=== PATIENT | female | born 1980 | race Caucasian/White ===

== ENCOUNTER 2016-10-19 11:32 | Day surgery (SDC) | payer MEDICARE, MEDICAID ==
[~2016-10-19 11:32] MED LIST: GLYCOPYRROLATE INJ 0.4 MG/2 ML VIAL ONE; LIDOCAINE 2% INJ-PF (20 MG/ML) 10 ML AMPUL ONE; METOCLOPRAMIDE HCL INJ/PF 10 MG/2 ML SDV ONE; ONDANSETRON HCL INJ/PF 4 MG/2 ML SDV ONE
[2016-10-19] MEDS ORDERED: OXYCODONE-ACETAMINOPHEN 5-325 MG TABLET PO PRN ×2 (12:01)
[2016-10-19] MEDS ORDERED: PROMETHAZINE HCL INJ 25 MG/1 ML VIAL IV PRN ×2 (12:01)
[2016-10-19] MEDS ORDERED: DIPHENHYDRAMINE HCL 50 MG/ML VIAL IV PRN (12:01)
[2016-10-19] MEDS ORDERED: FENTANYL CITRATE INJ/PF 100 MCG/2 ML AMPUL IV PRN ×3 (12:01)
[2016-10-19] MEDS ORDERED: MORPHINE SULFATE 10 MG/ML INJ IV PRN (12:01)
[2016-10-19] MEDS ORDERED: MEPERIDINE HCL/PF INJ 25 MG/1 ML DISP.SYRIN IV PRN (12:01)
[2016-10-19 12:31] LABS: ABSOLUTE BASOPHILS # (AUTO) 0.1 10^3/uL (0.0-0.2); ABSOLUTE EOSINOPHILS # (AUTO) 0.2 10^3/uL (0.0-0.6); ABSOLUTE LYMPHOCYTES (AUTO) 1.5 10^3/uL (0.5-4.7); ABSOLUTE MONOCYTES (AUTO) 0.4 10^3/uL (0.1-1.4); ABSOLUTE NEUT (AUTO) 4.4 10^3/uL (1.7-8.2); BASOPHILS % (AUTO) 1.1 % (0-2); HEMATOCRIT 44.8 % (36.0-47.0); HEMOGLOBIN 15.1 g/dL (12.0-15.5); HGB HCT DIFFERENCE 0.5; LYMPHOCYTES % (AUTO) 22.5 % (13-45); MEAN CORPUSCULAR HEMOGLOBIN 31.9 pg (27.0-33.4); MEAN CORPUSCULAR HGB CONC 33.6 g/dL (32.0-36.0); MEAN CORPUSCULAR VOLUME 95 fl (80-97); MONOCYTES % (AUTO) 6.1 % (3-13); RED BLOOD COUNT 4.73 10^6/uL (3.72-5.28); RED CELL DISTRIBUTION WIDTH 15.8 % (11.5-14.0); SEGMENTED NEUTROPHILS % (AUTO) 67.3 % (42-78); WHITE BLOOD COUNT 6.5 10^3/uL (4.0-10.5)
[2016-10-19 12:45] LABS: PROTHROMBIN TIME 46.9 SEC (11.4-15.4)
[2016-10-19 12:46] LABS: PARTIAL THROMBOPLASTIN TIME 65.9 SEC (23.5-35.8)
[2016-10-19] MEDS ORDERED: LIDOCAINE 0.5% INJ-PF (5 MG/ML) 50 ML SDV ONE (12:50)
[2016-10-19] MEDS ORDERED: IPRATROPIUM/ALBUTEROL 0.5-2.5 MG/3 ML AMPUL NEB ONE (12:50)
[2016-10-19] MEDS ORDERED: ALBUTEROL SULFATE 0.083% NEB 2.5 MG/3 ML AMPUL NEB ONE (12:52)
[2016-10-19 12:56] LABS: ANION GAP 18 (5-19); BLOOD UREA NITROGEN 45 mg/dL (7-20); CALCIUM 9.9 mg/dL (8.4-10.2); CARBON DIOXIDE 23 mmol/L (22-30); CHLORIDE 96 mmol/L (98-107); CREATININE RESULT 12.88 mg/dL (0.52-1.25); GLUCOSE 98 mg/dL (75-110); POTASSIUM 5.2 mmol/L (3.6-5.0); SODIUM 136.5 mmol/L (137-145)
[2016-10-19] MEDS ORDERED: FENTANYL CITRATE INJ/PF 250 MCG/5 ML AMPULE ONE (13:23)
[2016-10-19] MEDS ORDERED: KETAMINE HCL INJ 500 MG/10 ML VIAL ONE (13:23)
[2016-10-19] MEDS ORDERED: MIDAZOLAM 2 MG/2 ML INJ ONE (13:24)
[2016-10-19] MEDS ORDERED: DEXMEDETOMIDINE INJ 80 MCG/20 ML VIAL IV ONE (13:24)
[2016-10-19] MEDS ORDERED: PROPOFOL INJ 200 MG/20 ML VIAL IV ONE (13:24)
[2016-10-19] MEDS ORDERED: HYDROMORPHONE HCL INJ/PF 2 MG/ML AMPULE ONE (15:09)
--- NOTE | 2016-10-19 15:13 | PDOC DISCHARGE SUMMARY ---
Discharge Summary (SDC) - Discharge Final Diagnosis: #1 malfunctioning arteriovenous fistula, right brachiocephalic. #2 end-stage renal disease on hemodialysis. #3 tobacco use disorder. Date of Surgery: 10/19/16 Discharge Date: 10/19/16 Condition: Good Treatment or Instructions: #1 activities within moderation encouraged. #2 follow up in my office by appointment in about 1 month. Call for appointment. #3 the wounds covered clean and dry until hemodialysis. #4 hold off on school/work until evaluation in office. #5 may shower in 48 hours, keep operated area as dry as possible. #6 discharge from ambulatory when ASU criteria met. #7 medications per medication reconciliation sheet. #8 Also may have one Percocet up to every 4 hours when necessary for pain greater than 4 out of 10 while in the ASU Discharge Diet: Other (Comments) Respiratory Treatments at Home: Deep Breathing/Coughing Report the Following to Your Physician Immediately: Shortness of Breath, Unusual Bleeding
--- NOTE | 2016-10-19 16:24 | Operative Report ---
Operative Report DATE OF SURGERY: 10/19/16 PREOPERATIVE DIAGNOSIS: #1 malfunctioning arteriovenous fistula, right brachiocephalic. #2 end-stage renal disease on hemodialysis. #3 tobacco use disorder. POSTOPERATIVE DIAGNOSIS: #1 malfunctioning arteriovenous fistula, right brachiocephalic. #2 end-stage renal disease on hemodialysis. #3 tobacco use disorder. OPERATION: #1 needle access into fistula. #2 angioplasty in arterial segment. #3 angioplasty in arteriovenous fistula. #4 angiogram and interpretation. SURGEON: DANNIELLE ECHEVARRIA TRAILER TECHNICIAN: none ANESTHESIA: LMAC TISSUE REMOVED OR ALTERED: Not applicable. COMPLICATIONS: None ESTIMATED BLOOD LOSS: 2 mL. INTRAOPERATIVE FINDINGS: Of a well-founded right arm brachiocephalic fistula. Somewhat soft, suggesting inflow disease. On palpation stenosis is predicted at about a 3 cm from the arteriovenous last anastomosis. Sure enough there was a 80-90% stenosis at this area, 2-3 mm long. Corrected with perhaps 5-10% stenosis residual. In addition the initial 3 mm of the fistula and the arteriovenous anastomosis were stenotic about 80% of the adjacent lumen. This responded nicely to angioplasty with a residual 5-10% stenosis. The fistula itself was firm and suggesting better inflow after correction. Further aggressive dilatations may be needed in future. The patient's INR would need to be in appropriate level in order to reduce risk. Today the INR was close to 5. PROCEDURE: PROCEDURE: After verifying the procedure and having obtained informed consent, the patient's right arm was prepared with Chlorhexidine and draped out with sterile linen. Local anesthesia infiltrated. Percutaneous access into the fistula ,[retrograde], obtained about [15 cm] from the arteriovenous anastomosis using a micro puncture needle followed by micro puncture wire and then a micro puncture catheter. Angiogram demonstrated the aforementioned findings. Angioplasty was elected. A 0.035 [place] wire was inserted, and over this, a 6 Telugu short introducer was placed, this was followed by a [5] Jonathan angioplasty balloon . Angioplasty was Done first that the arterial venous anastomosis inflating up to 12 manjinder for 1 minute. The balloon was now withdrawn and inflated at the arteriovenous stenotic segment up to 14 manjinder for a minute. Completion angiogram demonstrated considerable improvement. A 6 mm angioplasty balloon was now swapped over and used to inflate the inflate the in fistula stenosis. Inflating up to 14 atmospheres for a minute at a time.]. Completion angiogram demonstrated [an acceptable result]. The instrumentation was now withdrawn over pressure for 10 minutes. Dressings applied, procedure concluded. Exposure time: 1.7 minutes. Radiation: 8 tucker per centimeters squared Contrast: 25 mL of Isovue-M 300, low osmolality. DICTATING PHYSICIAN: DANNIELLE DAVIS M.D. cc: DANNIELLE DAVIS M.D. ([id number]) >>
[2016-10-19 17:39] VITALS: BP 105/58
--- NOTE | 2016-11-03 10:23 | HISTORY AND PHYSICAL E ---
History and Physical NAME: GEORGIE LIN : 1980 AGE: 36Y ADMITTED: 10/19/2016 ROOM: ADMITTING DIAGNOSES: 1. Malfunctioning arteriovenous fistula. 2. End-stage renal disease on hemodialysis. 3. Tobacco use disorder. HISTORY OF THE PRESENTING COMPLAINT: The patient was referred across from hemodialysis because of poor function in her fistula, decreased flow. PAST MEDICAL HISTORY: Polycystic kidney disease, hypertension, tobacco use disorder, and end-stage renal disease. ALLERGIES: As noted in chart. PHYSICAL EXAMINATION: GENERAL: A very pleasant 36-year-old female. Alert and oriented. Judgment, memory and insight seem normal. VITAL SIGNS: Blood pressure 105/58. Temperature of 97.7. Pulse rate of 87. Respiratory rate of 16. EYES: Mucous membranes pink and moist. Sclerae anicteric. OROPHARYNX: Normal. Dentition intact. RESPIRATORY: Chest clear bilaterally. No wheezing. HEART: Sounds normal. No murmurs. UPPER EXTREMITIES: Pertinent for scars of previous fistula. A well-founded right brachiocephalic fistula noted. Relatively soft, suggesting inflow disease. PLAN: To admit the patient for fistula angiogram and possible angioplasty. The risks, benefits, expected outcome and alternatives are familiar to the patient, and she wishes to proceed. DICTATING PHYSICIAN: DANNIELLE DAVIS M.D. [id number] JOSEY#: [id number] ID: [id number] JOB#: [id number] ACCT: [id number] cc:DANNIELLE DAVIS M.D. >
== END 2016-10-19 17:55 | disposition home or self-care (01) ==
LOC: MERGE 11:32 → OROUT 11:32
PROVIDERS: ATTEND Surgery
PROC: 05SC0ZZ Reposition Left Basilic Vein, Open Approach (ICD-10-PCS; principal; 2016-10-19)
PROC: 05753DZ Dilation of Right Subclavian Vein with Intraluminal Device, Percutaneous Approach (ICD-10-PCS; 2016-10-19)
DX: T82.858A Stenosis of other vascular prosthetic devices, implants and grafts, initial encounter (principal); Y83.2 Surgical operation with anastomosis, bypass or graft as the cause of abnormal reaction of the patient, or of later complication, without mention of misadventure at the time of the procedure; Z99.2 Dependence on renal dialysis; F17.210 Nicotine dependence, cigarettes, uncomplicated; N18.6 End stage renal disease; I12.0 Hypertensive chronic kidney disease with stage 5 chronic kidney disease or end stage renal disease; M19.90 Unspecified osteoarthritis, unspecified site; E66.9 Obesity, unspecified; Q61.3 Polycystic kidney, unspecified
CPT/HCPCS: 36819; 36415; 84703; 85025; 85610; 85730; 80048; 36902; C1752; C1725 ×2; Q9967; C1769; J2250; J3010; J3490 ×4; J2765; J1170; J2405; J2704; A9270; J1644; 1844; J7620

== ENCOUNTER 2016-12-14 06:36 | Day surgery (SDC) | payer MEDICARE, MEDICAID ==
[2016-12-14] MEDS ORDERED: EPHEDRINE SULFATE INJ 50 MG/1 ML AMPULE ONE (06:45)
[2016-12-14] MEDS ORDERED: PROPOFOL INJ 200 MG/20 ML VIAL IV ONE (06:45)
[2016-12-14] MEDS ORDERED: MIDAZOLAM 2 MG/2 ML INJ ONE (06:45)
[2016-12-14] MEDS ORDERED: FENTANYL CITRATE INJ/PF 100 MCG/2 ML AMPUL ONE (06:45)
[2016-12-14] MEDS ORDERED: DEXMEDETOMIDINE INJ 80 MCG/20 ML VIAL IV ONE (06:46)
[2016-12-14] MEDS ORDERED: HEPARIN SOD (PORCINE) 1,000 UNIT/ML 10 ML VIAL ONE (06:47)
[2016-12-14 07:06] LABS: ABSOLUTE BASOPHILS # (AUTO) 0.1 10^3/uL (0.0-0.2); ABSOLUTE EOSINOPHILS # (AUTO) 0.3 10^3/uL (0.0-0.6); ABSOLUTE LYMPHOCYTES (AUTO) 1.9 10^3/uL (0.5-4.7); ABSOLUTE MONOCYTES (AUTO) 0.4 10^3/uL (0.1-1.4); ABSOLUTE NEUT (AUTO) 3.1 10^3/uL (1.7-8.2); BASOPHILS % (AUTO) 1.2 % (0-2); EOSINOPHILS % (AUTO) 5.4 % (0-6); HEMATOCRIT 41.5 % (36.0-47.0); HEMOGLOBIN 13.9 g/dL (12.0-15.5); HGB HCT DIFFERENCE 0.2; LYMPHOCYTES % (AUTO) 32.5 % (13-45); MEAN CORPUSCULAR HEMOGLOBIN 31.3 pg (27.0-33.4); MEAN CORPUSCULAR HGB CONC 33.5 g/dL (32.0-36.0); MEAN CORPUSCULAR VOLUME 94 fl (80-97); MONOCYTES % (AUTO) 7.5 % (3-13); RED BLOOD COUNT 4.44 10^6/uL (3.72-5.28); RED CELL DISTRIBUTION WIDTH 14.3 % (11.5-14.0); SEGMENTED NEUTROPHILS % (AUTO) 53.4 % (42-78); WHITE BLOOD COUNT 5.8 10^3/uL (4.0-10.5)
[2016-12-14] MEDS ORDERED: KETAMINE HCL INJ 500 MG/10 ML VIAL ONE (07:50)
[2016-12-14 08:02] LABS: PROTHROMBIN TIME 19.1 SEC (11.4-15.4)
[2016-12-14 08:14] LABS: ANION GAP 15 (5-19); BLOOD UREA NITROGEN 39 mg/dL (7-20); CALCIUM 9.6 mg/dL (8.4-10.2); CARBON DIOXIDE 27 mmol/L (22-30); CHLORIDE 96 mmol/L (98-107); CREATININE RESULT 9.75 mg/dL (0.52-1.25); GLUCOSE 104 mg/dL (75-110); POTASSIUM 5.1 mmol/L (3.6-5.0); SODIUM 138.4 mmol/L (137-145)
[2016-12-14] MEDS ORDERED: LIDOCAINE 0.5% INJ-PF (5 MG/ML) 50 ML SDV ONE (08:33)
--- NOTE | 2016-12-14 09:53 | PDOC H&P ---
General Chief Complaint: The patient was referred across for angiogram. She is noted to have increased venous pressures on dialysis. Suggesting outflow disease. - Current Medications/Allergies Home Medications: Clonazepam [Klonopin] 0.5 mg PO TID 03/12/15 Fentanyl 50 mcg TD Q72H 03/12/15 Omeprazole 20 mg PO QHS 03/12/15 Ondansetron HCl [Zofran 4 mg Tablet] 4 mg PO Q6H PRN 03/12/15 Trazodone HCl [Desyrel 50 mg Tablet] 50 mg PO QHS 10/19/15 Warfarin Sodium 5 mg PO QHS 10/19/15 Albuterol Sulfate 2.5 mg IH QIDP PRN 03/17/16 Albuterol Sulfate [Proair HFA] 2 puff IH Q6HP PRN 03/17/16 Gabapentin Enacarbil [Horizant] 300 mg PO QHS 03/17/16 Tizanidine HCl 4 mg PO QHS 03/17/16 Calcium Acetate [Phoslo] 4 cap PO MEALS 03/19/16 Enoxaparin Sodium [Lovenox] 40 mg INJ DAILY 05/18/16 Hydromorphone HCl [Dilaudid] 4 mg PO DAILY PRN 05/18/16 Albuterol Sulfate [Albuterol Sulfate 2.5mg/3 mL] 2.5 mg IH PRN PRN 07/13/16 Albuterol Sulfate [Proair HFA] 1 puff IH PRN PRN 07/13/16 Calcium Acetate [Phoslo 667 mg Capsule] 1 tab PO DAILY 07/13/16 Clonazepam [Klonopin] 0.5 mg 07/13/16 Fentanyl Citrate/Pf [Fentanyl 50 Mcg/ml Syringe] 50 mcg TD 07/13/16 Gabapentin Enacarbil [Horizant] 300 mg PO DAILY 07/13/16 Ipratropium [place] [Atrovent 0.02% Neb 0.5 mg/2.5 ml Ampul] 1 puff IH PRN PRN 07/13/16 Omeprazole 20 mg PO DAILY 07/13/16 Ondansetron HCl [Zofran] 4 mg PO DAILY 07/13/16 Oxymorphone HCl 10 mg PO DAILY 07/13/16 Trazodone HCl [Desyrel 50 mg Tablet] 50 mg PO DAILY 07/13/16 Warfarin Sodium 5 mg PO DAILY 07/13/16 Allergies/Adverse Reactions: oxycodone HCl [From Percocet] Allergy (Severe, Verified 06/17/16 08:48) Hives acetaminophen [From Percocet] Allergy (Verified 07/13/16 11:21) adhesive Allergy (Verified 07/13/16 11:22) adhesive tape [Adhesive Tape] Allergy (Verified 06/17/16 08:48) Generalized rash oxycodone [From Percocet] Allergy (Verified 07/13/16 11:21) Past Medical History Cardiac Medical History: Reports: Congestive Heart Failure, Hypertension Denies: Coronary Artery Disease, Myocardial Infarction, Heart Murmur Pulmonary Medical History: Reports: Asthma Denies: Bronchitis, Chronic Obstructive Pulmonary Disease (COPD), Pneumonia, Respiratory Failure, Sleep Apnea, Tuberculosis Neurological Medical History: Reports: Migraine Denies: Seizures Renal/ Medical History: Reports: End Stage Renal Disease GI Medical History: Reports: Gastroesophageal Reflux Disease Musculoskeltal Medical History: Denies: Arthritis Psychiatric Medical History: Denies: Depression Hematology: Denies: Anemia, Hemophilia, Sickle Cell Disease Past Surgical History Past Surgical History: Reports: Appendectomy, Section - x1, Tubal Ligation Family History Family History: Other - Multiple family members with polycystic kidney disease Parental Family History Reviewed: Yes Children Family History Reviewed: Yes Sibling(s) Family History Reviewed.: Yes Social History Smoking Status: Current Some Day Smoker Frequency of Alcohol Use: None Hx Recreational Drug Use: No Hx Prescription Drug Abuse: No Physical Exam Vital Signs: Temp Pulse Resp BP Pulse Ox 98.4 F 87 16 138/84 H 94 12/14/16 06:30 12/14/16 06:30 12/14/16 06:30 12/14/16 06:30 12/14/16 06:30 Intake & Output 12/13/16 12/14/16 12/15/16 06:59 06:59 06:59 Weight 116 kg Additional comments: A well-developed well-nourished female. Mildly increased body habitus. Mild chronic emotional distress. Eyes membranes is pink and moist, sclerae anicteric. Respiratory no shortness of breath. Breath sounds are normal and equal bilaterally. Cardiac: Heart sounds 1 and 2 heard, no murmurs. Upper extremities show normal range of movement and pulsatile to the radials. Normal capillary refill. A cephalic to brachial fistula is appreciated. In the right upper extremity. Somewhat firm, suggesting cephalad stenosis. Psychiatric the patient is alert, oriented, judgment, memory, insight normal Impression/Plan Impression: #1 malfunctioning AV fistula. #2 end-stage renal disease on hemodialysis. #3 chronic anticoagulation. #4 hypertension. #5 anxiety. #6 syndrome. #7 multiple comorbidities. Plan: The patient is admitted for fistula angioplasty probably through an antegrade approach.
[2016-12-14] MEDS ORDERED: PROMETHAZINE HCL INJ 25 MG/1 ML VIAL IV PRN (09:55)
[2016-12-14] MEDS ORDERED: DIPHENHYDRAMINE HCL 50 MG/ML VIAL IV PRN (09:55)
[2016-12-14] MEDS ORDERED: MORPHINE SULFATE 10 MG/ML INJ IV PRN (09:55)
[2016-12-14] MEDS ORDERED: ONDANSETRON HCL INJ/PF 4 MG/2 ML SDV IV PRN (09:55)
[2016-12-14] MEDS ORDERED: FENTANYL CITRATE INJ/PF 100 MCG/2 ML AMPUL IV PRN ×3 (09:55)
[2016-12-14] MEDS ORDERED: MEPERIDINE HCL/PF INJ 25 MG/1 ML DISP.SYRIN IV PRN (09:55)
--- NOTE | 2016-12-14 09:55 | PDOC DISCHARGE SUMMARY ---
Discharge Summary (SDC) - Discharge Final Diagnosis: #1 malfunctioning AV fistula. #2 end-stage renal disease on hemodialysis. #3 chronic anticoagulation. #4 hypertension. #5 anxiety. #6 syndrome. #7 multiple comorbidities. Date of Surgery: 12/14/16 Discharge Date: 12/14/16 Condition: Fair Treatment or Instructions: #1 activities within moderation encouraged. #2 follow up in my office by appointment in about 1 week. Call for appointment. #3 the wounds covered clean and dry until hemodialysis. #4 hold off on school/work until evaluation in office. #5 may shower in 48 hours, keep operated area as dry as possible. #6 discharge from ambulatory when ASU criteria met. #7 medications per medication reconciliation sheet. Discharge Diet: Other (Comments) - Renal Respiratory Treatments at Home: Deep Breathing/Coughing Discharge Activity: Activity As Tolerated Report the Following to Your Physician Immediately: Shortness of Breath, Unusual Bleeding
[2016-12-14 11:18] VITALS: BP 130/85
[2016-12-14] MEDS ORDERED: ONDANSETRON HCL INJ/PF 4 MG/2 ML SDV ONE (12:09)
[2016-12-14] MEDS ORDERED: LIDOCAINE 2% INJ-PF (20 MG/ML) 10 ML AMPUL ONE (12:09)
--- NOTE | 2016-12-14 17:56 | Operative Report ---
Operative Report DATE OF SURGERY: 12/14/16 PREOPERATIVE DIAGNOSIS: #1 malfunctioning AV fistula. #2 end-stage renal disease on hemodialysis. #3 chronic anticoagulation. #4 hypertension. #5 anxiety. #6 syndrome. #7 multiple comorbidities. POSTOPERATIVE DIAGNOSIS: #1 malfunctioning AV fistula. #2 end-stage renal disease on hemodialysis. #3 chronic anticoagulation. #4 hypertension. #5 anxiety. #6 syndrome. #7 multiple comorbidities. OPERATION: #1 needle access into fistula. #2 fistula angioplasty. #3 angiogram and interpretation. SURGEON: DANNIELLE DAVIS 1ST CREDIT COUNSELOR: none ANESTHESIA: Moderate Sedation TISSUE REMOVED OR ALTERED: Not applicable. COMPLICATIONS: None ESTIMATED BLOOD LOSS: 2 mL. INTRAOPERATIVE FINDINGS: Of stenoses each about 1.5 cm long and 80% of the adjacent lumen. At about 18 cm and at 25 cm. easily dilated and appeared almost to be stenosis rather than stenosis. Nevertheless they responded to dilatation very nicely with softening of the fistula. PROCEDURE: After verifying the procedure and having obtained informed consent, the patient's right arm was prepared with Chlorhexidine and draped out with sterile linen. Local anesthesia infiltrated. Percutaneous access into the fistula ,[ antegrade], obtained about [2 cm] from the arteriovenous anastomosis using a micro puncture needle followed by micro puncture wire and then a micro puncture catheter. Angiogram demonstrated the aforementioned findings. Angioplasty was elected. A 0.035 [place] wire was inserted, and over this, a 6 Dive[place] short introducer was placed, this was followed by a [8] angioplasty balloon . Angioplasty was Done under hand injection at the affected areas.. Inflating up to estimated 60 atmospheres for a minute at a time.]. Completion angiogram demonstrated [satisfactory result]. The instrumentation was now withdrawn over a hand-held pressure for 15 minutes.. Dressings applied , procedure concluded. Exposure time: 0.3 minutes Radiation: 28 tucker per centimeters squared Contrast: 25 mL of Isovue-M 300, low osmolality. DICTATING PHYSICIAN: DANNIELLE DAVIS M.D. cc: DANNIELLE DAVIS M.D. ([id number]) >>
== END 2016-12-14 11:15 | disposition home or self-care (01) ==
LOC: OROUT 06:36
PROVIDERS: ATTEND Surgery
PROC: 057D3DZ Dilation of Right Cephalic Vein with Intraluminal Device, Percutaneous Approach (ICD-10-PCS; principal; 2016-12-14)
DX: T82.858A Stenosis of other vascular prosthetic devices, implants and grafts, initial encounter (principal); Y83.2 Surgical operation with anastomosis, bypass or graft as the cause of abnormal reaction of the patient, or of later complication, without mention of misadventure at the time of the procedure; I13.2 Hypertensive heart and chronic kidney disease with heart failure and with stage 5 chronic kidney disease, or end stage renal disease; I50.9 Heart failure, unspecified; N18.6 End stage renal disease; Z99.2 Dependence on renal dialysis; R06.81 Apnea, not elsewhere classified; M19.90 Unspecified osteoarthritis, unspecified site; G43.909 Migraine, unspecified, not intractable, without status migrainosus; J45.909 Unspecified asthma, uncomplicated; F41.9 Anxiety disorder, unspecified; K21.9 Gastro-esophageal reflux disease without esophagitis; R01.1 Cardiac murmur, unspecified; F32.9 Major depressive disorder, single episode, unspecified; Z79.899 Other long term (current) drug therapy; Z79.51 Long term (current) use of inhaled steroids; Z79.01 Long term (current) use of anticoagulants; Z88.5 Allergy status to narcotic agent; Z88.6 Allergy status to analgesic agent
CPT/HCPCS: 36415; 85025; 85610; 85730; 80048; 36902; C1725; C1752; Q9967; C1769; J2250; J3010; J1644 ×2; J3490 ×3; J2405; J2704; 1844

== ENCOUNTER → 2017-01-06 | Outpatient (CLI) | payer MEDICARE, MEDICAID | LOC: RAD 10:07 | PROVIDERS: ATTEND Internal Medicine Nephrology | DX: R31.9 Hematuria, unspecified (principal) | CPT/HCPCS: 76770 ==

== ENCOUNTER 2017-02-15 08:11 | Day surgery (SDC) | payer MEDICARE, MEDICAID ==
[~2017-02-15 08:11] MED LIST changes: +BUPIVACAINE HCL 0.25 % INJ/PF (2.5 MG/1 ML) 30 ML VIAL ONE; -GLYCOPYRROLATE INJ 0.4 MG/2 ML VIAL ONE; +LIDOCAINE 0.5% INJ-PF (5 MG/ML) 50 ML SDV ONE; -LIDOCAINE 2% INJ-PF (20 MG/ML) 10 ML AMPUL ONE; -METOCLOPRAMIDE HCL INJ/PF 10 MG/2 ML SDV ONE; -ONDANSETRON HCL INJ/PF 4 MG/2 ML SDV ONE
[2017-02-15 08:47] LABS: HEMOGLOBIN 16.1 g/dL (12.0-15.5); HGB HCT DIFFERENCE -1.7; MEAN CORPUSCULAR HEMOGLOBIN 30.9 pg (27.0-33.4); MEAN CORPUSCULAR HGB CONC 32.1 g/dL (32.0-36.0); MEAN CORPUSCULAR VOLUME 96 fl (80-97); RED CELL DISTRIBUTION WIDTH 14.5 % (11.5-14.0); WHITE BLOOD COUNT 5.8 10^3/uL (4.0-10.5)
[2017-02-15 09:10] LABS: ANION GAP 18 (5-19); BLOOD UREA NITROGEN 27 mg/dL (7-20); CALCIUM 9.7 mg/dL (8.4-10.2); CARBON DIOXIDE 25 mmol/L (22-30); CHLORIDE 96 mmol/L (98-107); CREATININE RESULT 10.13 mg/dL (0.52-1.25); GLUCOSE 95 mg/dL (75-110); POTASSIUM 4.9 mmol/L (3.6-5.0); SODIUM 138.9 mmol/L (137-145)
[2017-02-15] MEDS ORDERED: FENTANYL CITRATE INJ/PF 100 MCG/2 ML AMPUL ONE ×2 (09:34→11:23)
[2017-02-15] MEDS ORDERED: MIDAZOLAM 2 MG/2 ML INJ ONE ×2 (09:34→11:23)
[2017-02-15] MEDS ORDERED: LIDOCAINE 2% INJ-PF (20 MG/ML) 10 ML AMPUL ONE (09:34)
[2017-02-15] MEDS ORDERED: PROPOFOL INJ 200 MG/20 ML VIAL IV ONE (09:35)
[2017-02-15] MEDS ORDERED: ONDANSETRON HCL INJ/PF 4 MG/2 ML SDV IV PRN (10:32)
[2017-02-15] MEDS ORDERED: FENTANYL CITRATE INJ/PF 100 MCG/2 ML AMPUL IV PRN ×3 (10:32)
[2017-02-15] MEDS ORDERED: DIPHENHYDRAMINE HCL 50 MG/ML VIAL IV PRN (10:32)
[2017-02-15] MEDS ORDERED: MEPERIDINE HCL/PF INJ 25 MG/1 ML DISP.SYRIN IV PRN (10:32)
[2017-02-15] MEDS ORDERED: PROMETHAZINE HCL INJ 25 MG/1 ML VIAL IV PRN ×2 (10:32)
[2017-02-15] MEDS ORDERED: HEPARIN SOD (PORCINE) 1,000 UNIT/ML 10 ML VIAL ONE (10:40)
--- NOTE | 2017-02-15 11:17 | PDOC H&P ---
General Chief Complaint: This patient referred across for improvement in arteriovenous fistula. It has not been noted to sucking, suggesting inflow deficiency. - Current Medications/Allergies Home Medications: Clonazepam [Klonopin] 0.5 mg PO TID 03/12/15 Fentanyl 50 mcg TD Q72H 03/12/15 Omeprazole 20 mg PO QHS 03/12/15 Trazodone HCl [Desyrel 50 mg Tablet] 50 mg PO QHS 10/19/15 Warfarin Sodium 5 mg PO QHS 10/19/15 Albuterol Sulfate [Proair HFA] 2 puff IH Q6HP PRN 03/17/16 Gabapentin Enacarbil [Horizant] 300 mg PO QHS 03/17/16 Tizanidine HCl 4 mg PO QHS 03/17/16 Calcium Acetate [Phoslo] 4 cap PO MEALS 03/19/16 Hydromorphone HCl [Dilaudid] 4 mg PO DAILY PRN 05/18/16 Albuterol Sulfate [Albuterol Sulfate 2.5mg/3 mL] 2.5 mg IH PRN PRN 07/13/16 Ondansetron HCl [Zofran] 4 mg PO DAILY 07/13/16 Allergies/Adverse Reactions: oxycodone HCl [From Percocet] Allergy (Severe, Verified 06/17/16 08:48) Hives acetaminophen [From Percocet] Allergy (Verified 07/13/16 11:21) adhesive Allergy (Verified 07/13/16 11:22) adhesive tape [Adhesive Tape] Allergy (Verified 06/17/16 08:48) Generalized rash oxycodone [From Percocet] Allergy (Verified 07/13/16 11:21) Past Medical History Cardiac Medical History: Reports: Congestive Heart Failure, Hypertension Denies: Coronary Artery Disease, Myocardial Infarction, Heart Murmur Pulmonary Medical History: Reports: Asthma Denies: Bronchitis, Chronic Obstructive Pulmonary Disease (COPD), Pneumonia, Respiratory Failure, Sleep Apnea, Tuberculosis Neurological Medical History: Reports: Migraine Denies: Seizures Renal/ Medical History: Reports: End Stage Renal Disease GI Medical History: Reports: Gastroesophageal Reflux Disease Musculoskeltal Medical History: Denies: Arthritis Psychiatric Medical History: Denies: Depression Hematology: Denies: Anemia, Hemophilia, Sickle Cell Disease Past Surgical History Past Surgical History: Reports: Appendectomy, Section - x1, Tubal Ligation Family History Family History: Other - Multiple family members with polycystic kidney disease Parental Family History Reviewed: No Children Family History Reviewed: No Sibling(s) Family History Reviewed.: No Social History Smoking Status: Current Every Day Smoker Frequency of Alcohol Use: None Hx Recreational Drug Use: No Hx Prescription Drug Abuse: No Physical Exam Vital Signs: Temp Pulse Resp BP Pulse Ox 97.9 F 80 14 123/70 95 02/15/17 08:00 02/15/17 08:00 02/15/17 08:00 02/15/17 08:00 02/15/17 08:00 Intake & Output 02/14/17 02/15/17 02/16/17 06:59 06:59 06:59 Intake Total 20 Output Total 0 Balance 20 Weight 119.75 kg Additional comments: Constitutional: Well-developed well-nourished lady, moderately increased body mass index. No apparent acute distress. Eyes: Mucous membranes pink and moist, pupils equal and reactive to light. Conjunctiva normal. Cornea normal. ENT: Hearing grossly normal. External pinna normal to inspection. Teeth intact. Tongue normal to inspection. Back: Heart sounds 1 and 2 normal, no murmurs. Respiratory breath sounds are present bilaterally, normal. Normal respiratory effort. Skin: Normal to inspection. No ulcers, normal turgor. Psychiatric: Judgment, memory, insight seem normal. Mood is pleasant and appropriate. Chronic anxiety. Extremities: Upper extremities show normal range of movement. Pulses present noted to the radial arteries. Capillary refill normal. No cyanosis noted. No muscle wasting noted. Right arm brachial cephalic fistula present, somewhat soft, satisfactory thrill. Impression/Plan Impression: #1 malfunctioning arteriovenous fistula, right brachiocephalic. 2. End-stage renal disease on hemodialysis. 3. Chronic anxiety. 4. Chronic pain syndrome. 5. Hypertension. Plan: Angiogram and probably angioplasty seems well indicated in this patient. The objective is prolonged satisfactory for from of arteriovenous fistula in this lady in whom it is very difficult to procure and sustain. The risks benefits, expected outcome and alternatives are familiar to the patient. She wishes to proceed.
--- NOTE | 2017-02-15 11:20 | PDOC DISCHARGE SUMMARY ---
Discharge Summary (SDC) - Discharge Final Diagnosis: #1 malfunctioning arteriovenous fistula, right brachiocephalic. Angioplasty. 2. End-stage renal disease on hemodialysis. 3. Chronic anxiety. 4. Chronic pain syndrome. 5. Hypertension. Date of Surgery: 02/15/17 Discharge Date: 02/15/17 Condition: Fair Treatment or Instructions: Discharge home [after recovery per ASU criteria]. Diet , [renal],as tolerated, when fully awake advance as tolerated. Activities within moderation encouraged. Follow up in my office by appointment in about [1 month]. Call for appointment. Leave wounds [covered], [keep clean and dry, until hemodialysis. Hold of on school/work [until evaluation in office]. May shower [in 48 hrs], [try to keep operated area as dry as possible]. Discharge Diet: Other (Comments) - Renal Respiratory Treatments at Home: Deep Breathing/Coughing Discharge Activity: Activity As Tolerated Report the Following to Your Physician Immediately: Shortness of Breath, Unusual Bleeding
--- NOTE | 2017-02-15 11:32 | Operative Report ---
Operative Report DATE OF SURGERY: 02/15/17 PREOPERATIVE DIAGNOSIS: #1 malfunctioning arteriovenous fistula, right brachiocephalic. 2. End-stage renal disease on hemodialysis. 3. Chronic anxiety. 4. Chronic pain syndrome. 5. Hypertension. POSTOPERATIVE DIAGNOSIS: #1 malfunctioning arteriovenous fistula, right brachiocephalic. Postangioplasty. 2. End-stage renal disease on hemodialysis. 3. Chronic anxiety. 4. Chronic pain syndrome. 5. Hypertension. OPERATION: 1. Ultrasound evaluation and real-time ultrasound-guided access into left arm AV fistula. 2. Plasty and fistula. 3. Angiogram interpretation. SURGEON: DANNIELLE ECHEVARRIA INK MAKER: None ANESTHESIA: LMAC TISSUE REMOVED OR ALTERED: Not applicable. COMPLICATIONS: None ESTIMATED BLOOD LOSS: 2 mL. INTRAOPERATIVE FINDINGS: Of a relatively soft fistula initially suggesting inflow restriction. The first 3 cm of the fistula are somewhat narrow in comparison to the artery and to the cephalad fistula. The fistula is somewhat serpentine at the anastomosis so that an angle being was used to get a good picture of the anastomotic area. Angioplasty with a 5 mm and then a 7 mm [place] balloon demonstrated relatively pliant vessels with little in the way of waist however good dilatation of the involved segment with very little rebound. Palpation of the fistula suggested improved inflow at the end of the procedure. PROCEDURE: PROCEDURE: After verifying the procedure and having obtained informed consent, the patient's right arm and forearm were prepared with Chlorhexidine and draped out with sterile linen. Local anesthesia infiltrated. Percutaneous access into the fistula ,[retrograde], obtained about [20 cm] from the arteriovenous anastomosis using a micro puncture needle followed by micro puncture wire and then a micro puncture catheter. This was done on ultrasound guidance using real-time access into the vein. Ultrasound was also used to size the vein. Angiogram demonstrated the aforementioned findings. Angioplasty was elected. A 0.035 [place] wire was inserted, and over this, a 6 Italian short introducer was placed, this was followed by a 5 mm angioplasty balloon . Angioplasty was now done at the distal brachial artery just before the anastomosis and over the anastomotic and perianastomotic segment. Then by hand injection using a 3 mils syringe for up to 1 minute at the time. Angiogram demonstrated successful outcome. The balloon was now swapped over the wire for a 7 mm angioplasty balloon. Angioplasty was Done at the anastomotic and perianastomotic area using hand injection and a 3 mils syringe. Completion angiogram demonstrated [satisfactory result]. The instrumentation was now withdrawn over the pressure for 10 minutes. Dressings applied, procedure concluded. DICTATING PHYSICIAN: DANNIELLE DAVIS M.D. cc: DANNIELLE DAVIS M.D. ([id number]) >>
[2017-02-15 13:20] VITALS: BP 110/69
--- NOTE | 2017-02-15 16:58 | RADIOLOGY REPORT (SQ) ---
EXAM DESCRIPTION: ELBOW RIGHT AP/LAT; NO CHG FLUORO COMPLETED DATE/TIME: 02/15/2017 3:14 pm REASON FOR STUDY: ANGIOGRAM IN OR GUIDED BY C-ARM T82.858A STENOSIS OF OTHER VASCULAR PROSTH DEV/GR FT, INIT N18.6 END STAGE RENAL DISEASE COMPARISON: 12/14/2016 FLUOROSCOPY TIME: 2.9 minutes 21 series of digital images saved to PACS. TECHNIQUE: Intra-operative images acquired during surgical procedure to evaluate progress. NUMBER OF IMAGES: Cine fluoroscopic images. LIMITATIONS: None. FINDINGS: Imaging in fluoroscopy during right upper extremity dialysis access evaluation and plasty by Dr. Batista . Please refer to the operative report for further details. IMPRESSION: INTRA PROCEDURAL IMAGING ABOVE . COMMENT: Quality ID [id number]: Final reports for procedures using fluoroscopy that document radiation exp osure indices, or exposure time and number of fluorographic images (if radiation exposure indices are not available) Please consult full operative report of the attending physician for description of the procedure. TECHNICAL DOCUMENTATION: JOB ID: [id number] [email or web address]- All Rights Reserved
== END 2017-02-15 12:50 | disposition home or self-care (01) ==
LOC: OROUT 08:11
PROVIDERS: ATTEND Surgery
PROC: 057D3DZ Dilation of Right Cephalic Vein with Intraluminal Device, Percutaneous Approach (ICD-10-PCS; principal; 2017-02-15 10:00)
DX: T82.858A Stenosis of other vascular prosthetic devices, implants and grafts, initial encounter (principal); Y83.2 Surgical operation with anastomosis, bypass or graft as the cause of abnormal reaction of the patient, or of later complication, without mention of misadventure at the time of the procedure; I13.2 Hypertensive heart and chronic kidney disease with heart failure and with stage 5 chronic kidney disease, or end stage renal disease; I50.9 Heart failure, unspecified; N18.6 End stage renal disease; Z99.2 Dependence on renal dialysis; J45.909 Unspecified asthma, uncomplicated; G43.909 Migraine, unspecified, not intractable, without status migrainosus; K21.9 Gastro-esophageal reflux disease without esophagitis; F17.210 Nicotine dependence, cigarettes, uncomplicated; F41.9 Anxiety disorder, unspecified; G89.4 Chronic pain syndrome; Z86.711 Personal history of pulmonary embolism; G47.30 Sleep apnea, unspecified; E66.9 Obesity, unspecified; Z68.35 Body mass index [BMI] 35.0-35.9, adult
CPT/HCPCS: 36415; 85027; 81025; 80048; 73070; 36902; C1769; C1752; C1725; C1894; Q9967; J2250; J3010; J1644 ×2; J3490 ×2; J2704; 01844

== ENCOUNTER 2017-07-05 04:57 | Emergency (ER) | payer MEDICARE, MEDICAID ==
[2017-07-05] MEDS ORDERED: ACETAMINOPHEN 325 MG TABLET PO ONE (05:32)
[2017-07-05] MEDS ORDERED: IPRATROPIUM/ALBUTEROL 0.5-2.5 MG/3 ML AMPUL NEB ONE ×3 (05:32→06:41)
[2017-07-05] MEDS ORDERED: PREDNISONE 20 MG TABLET PO ONE (05:32)
--- NOTE | 2017-07-05 05:36 | ER Document Report ---
ED Medical Screen (RME) - General Chief Complaint: Shortness Of Breath Stated Complaint: TROUBLE BREATHING Time Seen by Provider: 07/05/17 05:19 Information source: Patient Notes: Patient states that she got up around 4:00 to go to the bathroom and became short of breath. Patient is in end-stage renal disease patient who does dialyze. Patient states there have been issues with her fistula and she is waiting to see a vascular surgeon. Patient states that she has been compliant with her high blood pressure medications. Patient does complain of a headache for several days that worsened today. TRAVEL OUTSIDE OF THE [place] IN LAST 30 DAYS: No - Related Data Allergies/Adverse Reactions: oxycodone HCl [From Percocet] Allergy (Severe, Verified 06/17/16 08:48) Hives acetaminophen [From Percocet] Allergy (Verified 07/13/16 11:21) adhesive Allergy (Verified 07/13/16 11:22) adhesive tape [Adhesive Tape] Allergy (Verified 06/17/16 08:48) Generalized rash oxycodone [From Percocet] Allergy (Verified 07/13/16 11:21) Past Medical History - Past Medical History Cardiac Medical History: Reports: Hx Congestive Heart Failure, Hx Hypertension Denies: Hx Coronary Artery Disease, Hx Heart Attack, Hx Heart Murmur Pulmonary Medical History: Reports: Hx Asthma Denies: Hx Bronchitis, Hx COPD, Hx Pneumonia, Hx Respiratory Failure, Hx Sleep Apnea, Hx Tuberculosis Neurological Medical History: Reports: Hx Migraine. Denies: Hx Cerebrovascular Accident, Hx Seizures Renal/ Medical History: Reports: Hx End Stage Renal Disease. Denies: Hx Peritoneal Dialysis GI Medical History: Reports: Hx Gastroesophageal Reflux Disease Musculoskeltal Medical History: Denies Hx Arthritis, Reports Hx Musculoskeletal Deformity, Reports Hx Musculoskeletal Trauma Psychiatric Medical History: Reports: Hx Anxiety Denies: Hx Depression Past Surgical History: Reports: Hx Abdominal Surgery - pancreatic drains with reversal, Hx Appendectomy, Hx Breast Surgery - lump removed, Hx Section - x1, Hx Kidney (Renal Surgery) - right upper arm fistula, Hx Tubal Ligation - Immunizations Immunizations up to date: Yes Hx Diphtheria, Pertussis, Tetanus Vaccination: Yes Physical Exam - Vital signs Vitals: Temp Pulse Resp BP Pulse Ox 97.7 F 88 20 202/97 H 95 07/05/17 04:59 07/05/17 04:59 07/05/17 04:59 07/05/17 04:59 07/05/17 04:59 - Respiratory Respiratory status: No respiratory distress Chest status: Nontender Breath sounds: Wheezing Course - Vital Signs Vital signs: Temp Pulse Resp BP Pulse Ox 97.7 F 88 20 202/97 H 95 07/05/17 04:59 07/05/17 04:59 07/05/17 04:59 07/05/17 04:59 07/05/17 04:59
[2017-07-05] MEDS ORDERED: ONDANSETRON 4 MG TAB.RAPDIS PO ONE (05:46)
--- NOTE | 2017-07-05 06:21 | EKG REPORT ---
SEVERITY:- BORDERLINE ECG - SINUS RHYTHM POOR R PROGGRESSION ANTERIOR PRECORDIAL LEADS : Confirmed by: Scottie Vizcarra MD 05-Jul-2017 06:20:42
[2017-07-05] MEDS ORDERED: DIPHENHYDRAMINE HCL 50 MG CAPSULE PO ONE (06:44)
[2017-07-05] MEDS ORDERED: CLONIDINE HCL 0.2 MG TABLET PO ONE (06:49)
[2017-07-05 06:51] LABS: ABSOLUTE BASOPHILS # (AUTO) 0.1 10^3/uL (0.0-0.2); ABSOLUTE EOSINOPHILS # (AUTO) 0.2 10^3/uL (0.0-0.6); ABSOLUTE LYMPHOCYTES (AUTO) 1.1 10^3/uL (0.5-4.7); ABSOLUTE MONOCYTES (AUTO) 0.4 10^3/uL (0.1-1.4); ABSOLUTE NEUT (AUTO) 5.4 10^3/uL (1.7-8.2); BASOPHILS % (AUTO) 0.8 % (0-2); EOSINOPHILS % (AUTO) 2.6 % (0-6); HEMOGLOBIN 12.3 g/dL (12.0-15.5); HGB HCT DIFFERENCE -0.1; MEAN CORPUSCULAR HEMOGLOBIN 30.6 pg (27.0-33.4); MEAN CORPUSCULAR HGB CONC 33.3 g/dL (32.0-36.0); MEAN CORPUSCULAR VOLUME 92 fl (80-97); MONOCYTES % (AUTO) 5.5 % (3-13); RED BLOOD COUNT 4.03 10^6/uL (3.72-5.28); RED CELL DISTRIBUTION WIDTH 13.3 % (11.5-14.0); SEGMENTED NEUTROPHILS % (AUTO) 75.1 % (42-78); WHITE BLOOD COUNT 7.2 10^3/uL (4.0-10.5)
--- NOTE | 2017-07-05 06:51 | ER Document Report ---
ED General - General Chief Complaint: Shortness Of Breath Stated Complaint: TROUBLE BREATHING Time Seen by Provider: 07/05/17 05:19 Mode of Arrival: Ambulatory Information source: Patient Notes: 37 yr old female hx of asthma , esrd on dialysis presents with complaints of sob. pt denies any fevers or chills, admits to wheezing. pt notes that she has had some issues with her fistula but did have compelte dialysis on sat. pt dose not feel fluid overloaded. TRAVEL OUTSIDE OF THE [place] IN LAST 30 DAYS: No - HPI Onset: Yesterday Onset/Duration: Persistent Quality of pain: Achy Severity: Mild Pain Level: 1 Associated symptoms: Nonproductive cough, Headache, Shortness of breath Exacerbated by: Walking Relieved by: Denies Similar symptoms previously: Yes Recently seen / treated by doctor: Yes - Related Data Allergies/Adverse Reactions: oxycodone HCl [From Percocet] Allergy (Severe, Verified 06/17/16 08:48) Hives acetaminophen [From Percocet] Allergy (Verified 07/13/16 11:21) adhesive Allergy (Verified 07/13/16 11:22) adhesive tape [Adhesive Tape] Allergy (Verified 06/17/16 08:48) Generalized rash oxycodone [From Percocet] Allergy (Verified 07/13/16 11:21) Past Medical History - General Information source: Patient - Social History Smoking Status: Never Smoker Cigarette use (# per day): No Chew tobacco use (# tins/day): No Smoking Education Provided: No Family History: Other - Multiple family members with polycystic kidney disease Patient has suicidal ideation: No Patient has homicidal ideation: No - Past Medical History Cardiac Medical History: Reports: Hx Congestive Heart Failure, Hx Hypertension Denies: Hx Coronary Artery Disease, Hx Heart Attack, Hx Heart Murmur Pulmonary Medical History: Reports: Hx Asthma Denies: Hx Bronchitis, Hx COPD, Hx Pneumonia, Hx Respiratory Failure, Hx Sleep Apnea, Hx Tuberculosis Neurological Medical History: Reports: Hx Migraine. Denies: Hx Cerebrovascular Accident, Hx Seizures Renal/ Medical History: Reports: Hx End Stage Renal Disease. Denies: Hx Peritoneal Dialysis GI Medical History: Reports: Hx Gastroesophageal Reflux Disease Musculoskeltal Medical History: Denies Hx Arthritis, Reports Hx Musculoskeletal Deformity, Reports Hx Musculoskeletal Trauma Psychiatric Medical History: Reports: Hx Anxiety Denies: Hx Depression Past Surgical History: Reports: Hx Abdominal Surgery - pancreatic drains with reversal, Hx Appendectomy, Hx Breast Surgery - lump removed, Hx Section - x1, Hx Kidney (Renal Surgery) - right upper arm fistula, Hx Tubal Ligation - Immunizations Immunizations up to date: Yes Hx Diphtheria, Pertussis, Tetanus Vaccination: Yes Hx Pneumococcal Vaccination: 08/23/12 Review of Systems - Review of Systems Notes: REVIEW OF SYSTEMS: CONSTITUTIONAL : Denies fever, chills, or sweats. Denies recent illness. EENT: Denies eye, ear, throat, or mouth pain or symptoms. Denies nasal or sinus congestion or discharge. Denies throat, tongue, or mouth swelling or difficulty swallowing. CARDIOVASCULAR: Denies chest pain. Denies palpitations or racing or irregular heart beat. Denies ankle edema. RESPIRATORY: admits to sob, wheezing GASTROINTESTINAL: Denies abdominal pain or distention. Denies nausea, vomiting , or diarrhea. Denies blood in vomitus, stools, or per rectum. Denies black, tarry stools. Denies constipation. GENITOURINARY: Denies difficulty urinating, painful urination, burning, frequency, blood in urine, or discharge. FEMALE GENITOURINARY: Denies vaginal bleeding, heavy or abnormal periods, irregular periods. Denies vaginal discharge or odor. MUSCULOSKELETAL: Denies back or neck pain or stiffness. Denies joint pain or swelling. SKIN: Denies rash, lesions or sores. HEMATOLOGIC : Denies easy bruising or bleeding. LYMPHATIC: Denies swollen, enlarged glands. NEUROLOGICAL:admit sot headache PSYCHIATRIC: Denies anxiety or stress. Denies depression, suicidal ideation, or homicidal ideation. ALL OTHER SYSTEMS REVIEWED AND NEGATIVE. PHYSICAL EXAMINATION: GENERAL: Well-appearing, well-nourished and in no acute distress. HEAD: Atraumatic, normocephalic. EYES: Pupils equal round and reactive to light, extraocular movements intact, conjunctiva are normal. ENT: Nares patent, oropharynx clear without exudates. Moist mucous membranes. NECK: Normal range of motion, supple without lymphadenopathy LUNGS: inspiratory expiratroy wheezing without any resp distress HEART: Regular rate and rhythm without murmurs ABDOMEN: Soft, nontender, nondistended abdomen. No guarding, no rebound. No masses appreciated. Female : deferred Musculoskeletal: Normal range of motion, no pitting or edema. No cyanosis. NEUROLOGICAL: Cranial nerves grossly intact. Normal speech, normal gait. Normal sensory, motor exams PSYCH: Normal mood, normal affect. SKIN: bruit noted on right sided upper extremity fistula Warm, Dry, normal turgor, no rashes or lesions noted. Dictation was performed using xiao qu wu you voice recognition software Physical Exam - Vital signs Vitals: Temp Pulse Resp BP Pulse Ox 97.7 F 88 20 202/97 H 95 07/05/17 04:59 07/05/17 04:59 07/05/17 04:59 07/05/17 04:59 07/05/17 04:59 Course - Re-evaluation Re-evalutation: 07/05/17 06:50 ekg notes no significant abnormality, she is wheezing which is more consistent with asthma exacerbation 07/05/17 07:55 pt notes improvement wit hbreathing treatment, no signs of chf or fluid overload , Dr Batista will evaluate patient in the ED 07/05/17 09:15 Dr. Batista evaluate the patient he believes she is stable for discharge from his standpoint she overall looks well is in no distress and I will discharge at this time After performing a Medical Screening Examination, I estimate there is LOW risk for ACUTE CORONARY SYNDROME, PULMONARY EMBOLI, RESPIRATORY FAILURE, SEPSIS OR MENINGITIS, thus I consider the discharge disposition reasonable. I have reevaluated this patient multiple times and no significant life threatening changes are noted. The patient and I have discussed the diagnosis and risks, and we agree with discharging home with close follow-up. We also discussed returning to the Emergency Department immediately if new or worsening symptoms occur. We have discussed the symptoms which are most concerning (e.g., changing or worsening pain, trouble swallowing or breathing, neck stiffness, fever) that necessitate immediate return. - Vital Signs Vital signs: Temp Pulse Resp BP Pulse Ox 97.7 F 79 20 147/81 H 92 07/05/17 04:59 07/05/17 08:38 07/05/17 04:59 07/05/17 08:38 07/05/17 08:38 - Laboratory Result Diagrams: 07/05/17 06:41 07/05/17 06:41 Laboratory results interpreted by me: 07/05/17 06:41 BUN 24 H Creatinine 7.72 H Est GFR ( Amer) 7 L Est GFR (Non-Af Amer) 6 L Direct Bilirubin 0.8 H AST 12 L - Diagnostic Test Radiology reviewed: Image reviewed, Reports reviewed - EKG Interpretation by Me EKG shows normal: Sinus rhythm, [place], Intervals, QRS Complexes Discharge - Discharge Clinical Impression: ESRD (end stage renal disease), COPD exacerbation Condition: Stable Disposition: HOME, SELF-CARE Instructions: Chronic Obstructive Lung Disease ([facility]) Prescriptions: Prednisone [Deltasone 20 mg Tablet] 3 tab PO DAILY 5 Days tablet Referrals: SHAQ HERNDON DO [Primary Care Provider] - Follow up tomorrow
--- NOTE | 2017-07-05 07:08 | RADIOLOGY REPORT (SQ) ---
EXAM DESCRIPTION: CHEST PA/LAT COMPLETED DATE/TIME: 07/05/2017 6:50 am REASON FOR STUDY: Shortness of breath COMPARISON: Chest x-ray 03/17/2016. EXAM PARAMETERS: NUMBER OF VIEWS: two views TECHNIQUE: Digital Frontal and Lateral radiographic views of the chest acquired. RADIATION DOSE: NA LIMITATIONS: none FINDINGS: LUNGS AND PLEURA: No consolidation, pneumothorax or pleural effusion. MEDIASTINUM AND HILAR STRUCTURES: No masses or contour abnormalities. HEART AND VASCULAR STRUCTURES: Heart normal size. No evidence for failure. BONES: No acute findings. HARDWARE: None in the chest. IMPRESSION: No acute radiographic finding in the chest. TECHNICAL DOCUMENTATION: JOB ID: [id number] [employer]- All Rights Reserved
--- NOTE | 2017-07-05 07:18 | RADIOLOGY REPORT (SQ) ---
EXAM DESCRIPTION: CT HEAD WITHOUT COMPLETED DATE/TIME: 07/05/2017 6:57 am REASON FOR STUDY: LITTLEJOHN,HTN COMPARISON: CT head 03/11/2015, 10/20/2014. TECHNIQUE: Axial images acquired through the brain without intravenous contrast. Images reviewed wi th bone, brain and subdural windows. Images stored on PACS. All CT scanners at this facility use dose modulation, iterative reconstruction, and/or weight based d osing when appropriate to reduce radiation dose to as low as reasonably achievable (ALARA). [facility]: Dose Right [facility]: CareDose [facility]: Dose Right [facility]: Teradose 4D [facility]: [employer] RADIATION DOSE: Up-to-date CT equipment and radiation dose reduction techniques were employed. CTDIv ol: 64.6 mGy. DLP: 1163 mGy-cm. mGy. LIMITATIONS: None. FINDINGS: VENTRICLES: Normal size and contour. CEREBRUM: No mass effect. No hemorrhage. No midline shift. Normal logan/white matter differentiatio n. No evidence for acute territorial infarction. CEREBELLUM: No mass effect. No hemorrhage. No alteration of density. No evidence for acute infarct ion. EXTRAAXIAL SPACES: No fluid collections. ORBITS AND GLOBE: Symmetrical contour of the globes. CALVARIUM: No depressed skull fracture. PARANASAL SINUSES: Mild mucosal thickening in the bilateral maxillary sinuses. SOFT TISSUES: No hematoma. IMPRESSION: No acute intracranial hemorrhage or acute territorial infarct. EVIDENCE OF ACUTE STROKE: NO. COMMENT: Quality ID # [id number]: Final reports with documentation of one or more dose reduction techniques (e.g., Automated exposure control, adjustment of the mA and/or kV according to patient size, use of iterative reconstruction technique) TECHNICAL DOCUMENTATION: JOB ID: [id number] [employer]- All Rights Reserved
[2017-07-05 07:20] LABS: ALANINE AMINOTRANSFERASE 17 U/L (9-52); ALKALINE PHOSPHATASE 73 U/L (38-126); ANION GAP 14 (5-19); ASPARTATE AMINO TRANSFERASE 12 U/L (14-36); BILIRUBIN,DIRECT 0.8 mg/dL (0.0-0.4); BILIRUBIN,TOTAL 0.9 mg/dL (0.2-1.3); BLOOD UREA NITROGEN 24 mg/dL (7-20); CARBON DIOXIDE 26 mmol/L (22-30); CHLORIDE 102 mmol/L (98-107); CREATINE KINASE 56 U/L (30-135); CREATININE RESULT 7.72 mg/dL (0.52-1.25); GLUCOSE 97 mg/dL (75-110); MAGNESIUM 1.9 mg/dL (1.6-2.3); POTASSIUM 4.8 mmol/L (3.6-5.0); SODIUM 142.3 mmol/L (137-145); TOTAL PROTEIN 6.4 g/dL (6.3-8.2)
[2017-07-05 07:31] LABS: CREATINE KINASE MB 0.75 ng/mL (<4.55)
[2017-07-05 07:34] LABS: TROPONIN I 0.048 ng/mL
[2017-07-05 08:38] VITALS: BP 147/81
== END 2017-07-05 09:26 | disposition home or self-care (01) ==
LOC: ER 04:57
DX: N18.6 End stage renal disease (principal); J44.1 Chronic obstructive pulmonary disease with (acute) exacerbation; R06.02 Shortness of breath; R06.2 Wheezing
CPT/HCPCS: 93005; 94640 ×2; 99285; 36415; 82553; 82550; 83735; 85025; 80053; 84484; 71020; 70450; 93010; A9270 ×6; J7512; J7620; S0119

== ENCOUNTER 2017-07-12 19:10 | Emergency (ER) | payer MEDICARE, MEDICAID ==
[2017-07-12] MEDS ORDERED: CLONAZEPAM 1 MG TABLET PO ONE ×2 (20:13→21:41)
[2017-07-12] MEDS ORDERED: HYDRALAZINE HCL INJ/PF 20 MG/1 ML SDV IV ONE (20:19)
[2017-07-12 20:51] LABS: ABSOLUTE EOSINOPHILS # (AUTO) 0.1 10^3/uL (0.0-0.6); ABSOLUTE LYMPHOCYTES (AUTO) 1.5 10^3/uL (0.5-4.7); ABSOLUTE MONOCYTES (AUTO) 0.6 10^3/uL (0.1-1.4); BASOPHILS % (AUTO) 0.3 % (0-2); EOSINOPHILS % (AUTO) 1.6 % (0-6); HEMOGLOBIN 12.9 g/dL (12.0-15.5); HGB HCT DIFFERENCE 0.7; LYMPHOCYTES % (AUTO) 20.6 % (13-45); MEAN CORPUSCULAR HEMOGLOBIN 30.4 pg (27.0-33.4); MEAN CORPUSCULAR HGB CONC 33.9 g/dL (32.0-36.0); MEAN CORPUSCULAR VOLUME 90 fl (80-97); MONOCYTES % (AUTO) 8.4 % (3-13); RED BLOOD COUNT 4.23 10^6/uL (3.72-5.28); RED CELL DISTRIBUTION WIDTH 13.5 % (11.5-14.0); SEGMENTED NEUTROPHILS % (AUTO) 69.1 % (42-78); WHITE BLOOD COUNT 7.2 10^3/uL (4.0-10.5)
[2017-07-12 20:53] LABS: PARTIAL THROMBOPLASTIN TIME 36.9 SEC (23.5-35.8); PROTHROMBIN TIME 26.9 SEC (11.4-15.4)
--- NOTE | 2017-07-12 21:07 | RADIOLOGY REPORT (SQ) ---
EXAM DESCRIPTION: CHEST PA/LAT COMPLETED DATE/TIME: 07/12/2017 8:45 pm REASON FOR STUDY: sob COMPARISON: 07/05/2017 EXAM PARAMETERS: NUMBER OF VIEWS: two views TECHNIQUE: Digital Frontal and Lateral radiographic views of the chest acquired. RADIATION DOSE: NA LIMITATIONS: none FINDINGS: LUNGS AND PLEURA: There are some minimal linear densities in the right lung base which cou ld represent atelectatic changes or minimal infiltrate. Remaining lung peraza are clear. MEDIASTINUM AND HILAR STRUCTURES: No masses or contour abnormalities. HEART AND VASCULAR STRUCTURES: The configuration of the heart mediastinal structures is unchanged. BONES: No acute findings. HARDWARE: None in the chest. OTHER: No other significant finding. IMPRESSION: Minimal right basilar densities as noted above TECHNICAL DOCUMENTATION: JOB ID: [id number] [employer]- All Rights Reserved
[2017-07-12 21:11] LABS: ALANINE AMINOTRANSFERASE 29 U/L (9-52); ALBUMIN 4.2 g/dL (3.5-5.0); ALKALINE PHOSPHATASE 61 U/L (38-126); ANION GAP 14 (5-19); ASPARTATE AMINO TRANSFERASE 17 U/L (14-36); BILIRUBIN,DIRECT 0.5 mg/dL (0.0-0.4); BILIRUBIN,TOTAL 0.6 mg/dL (0.2-1.3); BLOOD UREA NITROGEN 13 mg/dL (7-20); CALCIUM 9.2 mg/dL (8.4-10.2); CARBON DIOXIDE 28 mmol/L (22-30); CHLORIDE 98 mmol/L (98-107); CREATINE KINASE 52 U/L (30-135); CREATININE RESULT 4.62 mg/dL (0.52-1.25); GLUCOSE 95 mg/dL (75-110); POTASSIUM 3.6 mmol/L (3.6-5.0); TOTAL PROTEIN 6.5 g/dL (6.3-8.2)
[2017-07-12] MEDS ORDERED: ONDANSETRON HCL INJ/PF 4 MG/2 ML SDV IV ONE (21:18)
[2017-07-12 21:23] LABS: CREATINE KINASE MB 0.82 ng/mL (<4.55)
[2017-07-12 21:26] LABS: TROPONIN I 0.063 ng/mL
--- NOTE | 2017-07-12 21:41 | ER Document Report ---
ED General - General Chief Complaint: Chest Pain Stated Complaint: DIFFICULTY BREATHING Time Seen by Provider: 07/12/17 20:04 Mode of Arrival: Ambulatory Information source: Patient TRAVEL OUTSIDE OF THE [place] IN LAST 30 DAYS: No - HPI Patient complains to provider of: Chest pain, anxiety, nausea, high blood pressure, headache Onset: This evening Onset/Duration: Gradual Quality of pain: Achy Severity: Moderate Pain Level: 4 Associated symptoms: Chest pain, Headache, Nausea Exacerbated by: Denies Relieved by: Denies Similar symptoms previously: Yes Recently seen / treated by doctor: Yes Notes: Patient is a 37-year-old female with a history of hypertension, end-stage renal disease on dialysis Wednesday with the full treatment today, degenerative disc disease, who is in pain management program and on fentanyl patches and oxymorphone, she reports that she recently ran out of her anxiety medication and was feeling quite stressed and anxious this evening, which led to a panic attack which led to chest pain, shortness of breath, headache and nausea, with a blood pressure of 213/119 at time of triage - Related Data Allergies/Adverse Reactions: oxycodone HCl [From Percocet] Allergy (Severe, Verified 06/17/16 08:48) Hives acetaminophen [From Percocet] Allergy (Verified 07/13/16 11:21) adhesive Allergy (Verified 07/13/16 11:22) adhesive tape [Adhesive Tape] Allergy (Verified 06/17/16 08:48) Generalized rash oxycodone [From Percocet] Allergy (Verified 07/13/16 11:21) Past Medical History - General Information source: Patient - Social History Smoking Status: Current Every Day Smoker Family History: Other - Multiple family members with polycystic kidney disease Patient has suicidal ideation: No Patient has homicidal ideation: No - Past Medical History Cardiac Medical History: Reports: Hx Congestive Heart Failure, Hx Hypertension Denies: Hx Coronary Artery Disease, Hx Heart Attack, Hx Heart Murmur Pulmonary Medical History: Reports: Hx Asthma Denies: Hx Bronchitis, Hx COPD, Hx Pneumonia, Hx Respiratory Failure, Hx Sleep Apnea, Hx Tuberculosis Neurological Medical History: Reports: Hx Migraine. Denies: Hx Cerebrovascular Accident, Hx Seizures Renal/ Medical History: Reports: Hx End Stage Renal Disease. Denies: Hx Peritoneal Dialysis GI Medical History: Reports: Hx Gastroesophageal Reflux Disease Musculoskeltal Medical History: Denies Hx Arthritis, Reports Hx Musculoskeletal Deformity, Reports Hx Musculoskeletal Trauma Psychiatric Medical History: Reports: Hx Anxiety Denies: Hx Depression Past Surgical History: Reports: Hx Abdominal Surgery - pancreatic drains with reversal, Hx Appendectomy, Hx Breast Surgery - lump removed, Hx Section - x1, Hx Kidney (Renal Surgery) - right upper arm fistula, Hx Tubal Ligation - Immunizations Immunizations up to date: Yes Hx Diphtheria, Pertussis, Tetanus Vaccination: Yes Hx Pneumococcal Vaccination: 08/23/12 Review of Systems - Review of Systems Constitutional: No symptoms reported EENT: No symptoms reported Cardiovascular: Chest pain Respiratory: Short of breath Gastrointestinal: Nausea Genitourinary: No symptoms reported Female Genitourinary: No symptoms reported Musculoskeletal: No symptoms reported Skin: No symptoms reported Hematologic/Lymphatic: No symptoms reported Neurological/Psychological: Anxiety, Headaches -: Yes All other systems reviewed and negative Physical Exam - Vital signs Vitals: Pulse Ox 98 07/12/17 19:20 Interpretation: Hypertensive - General General appearance: Alert In distress: Mild - HEENT Head: Normocephalic, Atraumatic Eyes: Normal Conjunctiva: Normal Extraocular movements intact: Yes Eyelashes: Normal Pupils: PERRL - Respiratory Respiratory status: No respiratory distress Chest status: Nontender Breath sounds: Normal Chest palpation: Normal - Cardiovascular Rhythm: Regular Heart sounds: Normal auscultation Murmur: No - Abdominal Inspection: Normal Distension: No distension Bowel sounds: Normal Tenderness: Nontender Organomegaly: No organomegaly - Back Back: Normal, Nontender - Extremities General upper extremity: Normal inspection, Nontender, Normal color, Normal ROM , Normal temperature General lower extremity: Normal inspection, Nontender, Normal color, Normal ROM , Normal temperature, Normal weight bearing. No: Paramjit's sign - Neurological Neuro grossly intact: Yes Cognition: Normal Orientation: AAOx4 Gallo Coma Scale Eye Opening: Spontaneous [place] Coma Scale Verbal: Oriented [place] Coma Scale Motor: Obeys Commands [place] Coma Scale Total: 15 Speech: Normal Motor strength normal: LUE, RUE, LLE, RLE Sensory: Normal - Psychological Associated symptoms: Anxious, Tearful - Skin Skin Temperature: Warm Skin Moisture: Dry Skin Color: Normal Course - Re-evaluation Re-evalutation: 07/12/17 22:15 Patient reports feeling much better and ready to go home, blood pressure is improved, chest pain is completely resolved after receiving antianxiety medication, lab and imaging findings were discussed with patient at bedside which are relatively unremarkable for this chronically ill patient, chest x-ray does show possible right basilar infiltrate, patient is a smoker and has had a productive cough with subjective fever, therefore she was placed on a Z-Fan, and advised to follow-up with her primary care provider and maintenance millwright or return if symptoms worsen, patient acknowledges understanding and agreement with this plan 07/12/17 22:59 - Vital Signs Vital signs: Temp Pulse Resp BP Pulse Ox 98.6 F 88 18 171/80 H 95 07/12/17 22:32 07/12/17 22:32 07/12/17 22:32 07/12/17 22:32 07/12/17 22:32 - Laboratory Result Diagrams: 07/12/17 20:25 07/12/17 20:25 Laboratory results interpreted by me: 07/12/17 07/12/17 20:25 20:25 PT 26.9 H APTT 36.9 H Creatinine 4.62 H Est GFR ( Amer) 13 L Est GFR (Non-Af Amer) 11 L Direct Bilirubin 0.5 H - Diagnostic Test Radiology reviewed: Image reviewed, Reports reviewed - EKG Interpretation by Me EKG shows normal: Sinus rhythm Rate: Tachycardia Rhythm: PVC's Discharge - Discharge Clinical Impression: Anxiety Migraines Qualifiers: Migraine type: unspecified Status migrainosus presence: without status migrainosus Intractability: not intractable Qualified Code(s): G43.909 - Migraine, unspecified, not intractable, without status migrainosus Hypertension Qualifiers: Hypertension type: renovascular hypertension Qualified Code(s): I15.0 - Renovascular hypertension Pneumonia Qualifiers: Pneumonia type: due to unspecified organism Laterality: right Lung location: lower lobe of lung Qualified Code(s): J18.1 - Lobar pneumonia, unspecified organism Condition: Stable Disposition: HOME, SELF-CARE Instructions: Anxiety ([facility]), High Blood Pressure, Requiring Treatment ([facility]), Pneumonia ([facility]) Additional Instructions: Follow up with your primary care provider in one to 2 days. Return to the emergency room immediately if symptoms worsen or any additional concerns. Prescriptions: Azithromycin [Zithromax 250 mg Tablet] 250 mg PO ASDIR PRN #6 tablet PRN Reason: Clonazepam [Klonopin 1 mg Tablet] 1 mg PO TID #14 tablet Referrals: SHAQ HERNDON DO [Primary Care Provider] - Follow up as needed
[2017-07-12 22:34] VITALS: BP 171/80
--- NOTE | 2017-07-12 23:22 | EKG REPORT ---
SEVERITY:- ABNORMAL ECG - SINUS TACHYCARDIA VENTRICULAR PREMATURE COMPLEX BIATRIAL ABNORMALITIES NONSPECIFIC T ABNORMALITIES, LATERAL LEADS : Confirmed by: Fabio Orozco 12-Jul-2017 23:21:38
== END 2017-07-12 22:32 | disposition home or self-care (01) ==
LOC: ER 19:10
DX: F41.9 Anxiety disorder, unspecified (principal); G43.909 Migraine, unspecified, not intractable, without status migrainosus; R07.9 Chest pain, unspecified; J18.1 Lobar pneumonia, unspecified organism; I13.2 Hypertensive heart and chronic kidney disease with heart failure and with stage 5 chronic kidney disease, or end stage renal disease; N18.6 End stage renal disease; Z99.2 Dependence on renal dialysis; F17.200 Nicotine dependence, unspecified, uncomplicated; Z88.6 Allergy status to analgesic agent; Z98.51 Tubal ligation status
CPT/HCPCS: 93005; 99285; 96374; 96375; 36415; 82553; 82550; 85025; 85610; 85730; 80053; 84484; 71020; 93010; A9270; J0360; J2405

== ENCOUNTER 2017-07-13 09:18 | Day surgery (SDC) | payer MEDICARE, MEDICAID ==
[2017-07-13] MEDS ORDERED: LIDOCAINE 0.5% INJ-PF (5 MG/ML) 50 ML SDV ONE (09:46)
[2017-07-13] MEDS ORDERED: HEPARIN SOD (PORCINE) 5,000 UNIT/ML 1 ML SYRINGE ONE (11:04)
[2017-07-13] MEDS ORDERED: FENTANYL CITRATE INJ/PF 100 MCG/2 ML AMPUL ONE ×2 (11:21)
[2017-07-13] MEDS ORDERED: MIDAZOLAM 2 MG/2 ML INJ ONE (11:21)
[2017-07-13] MEDS ORDERED: PROPOFOL INJ 200 MG/20 ML VIAL IV ONE ×2 (11:22→13:04)
--- NOTE | 2017-07-13 12:45 | Operative Report ---
Operative Report DATE OF SURGERY: 07/13/17 PREOPERATIVE DIAGNOSIS: 1. Malfunctioning AV fistula, right brachiocephalic. 2. End-stage renal disease on hemodialysis. 3. Chronic pain syndrome. 4. Anxiety disorder. 5. Tobacco use disorder. 6. Hypertension. POSTOPERATIVE DIAGNOSIS: 1. Malfunctioning AV fistula, right brachiocephalic. Post angioplasty. 2. End-stage renal disease on hemodialysis. 3. Chronic pain syndrome. 4. Anxiety disorder. 5. Tobacco use disorder. 6. Hypertension. OPERATION: 1. Needle access into fistula. 2. Peripheral angioplasty. 3. Central angioplasty. 4. Angiogram and interpretation. SURGEON: DANNIELLE ECHEVARRIA BOILERMAKER FITTER: None ANESTHESIA: Moderate Sedation TISSUE REMOVED OR ALTERED: Not applicable. COMPLICATIONS: None ESTIMATED BLOOD LOSS: 5 mL. INTRAOPERATIVE FINDINGS: Of a initially very firm fistula suggestive of cephalad stenosis. A culprit lesion noted at about 6 16 cm representing about 80% of the adjacent lumen. Much improvement after angioplasty with an 8 and then 9 mm angioplasty balloon with a residual estimated about 10% stenosis. Seemingly due to rebound. To collaterals a 2 collaterals adjacent to this seemed to suggest its importance. A second stenosis noted at the junction of the innominate and subclavian vein on the right. Hard to see on angiogram but definite waist is seen with a balloons. These were eliminated on angioplasty with up to a 9 mm balloon. Post angioplasty of the fistula was soft although still somewhat firm. This may be due to her underlying hypertension. PROCEDURE: PROCEDURE: After verifying the procedure and having obtained informed consent, the patient's right arm was prepared with Chlorhexidine and draped out with sterile linen. Local anesthesia infiltrated. Percutaneous access into the fistula ,[ antegrade], obtained about [2 cm] from the arteriovenous anastomosis using a micro puncture needle followed by micro puncture wire and then a micro puncture catheter. A 0.035 [place] wire was inserted, and over this, a 6 [place] short introducer was placed, this was followed by a [8-mm ] angioplasty balloon . Angioplasty was Done from the superior vena cava up to the subclavian on suspicion of a lesion. This was identified on seeing a waist which was eliminated.. Inflating using a 3 mils syringe for 2 minutes. The catheter was now withdrawn to the lesion in the arm. This was likewise inflated with 3 mils syringe. A definite waist was noted and eliminated on angioplasty. Inflation for 2 minutes. Completion angiogram was improved. It seemed prudent to do a large angioplasty. A 7 [place] introducer was no swabs and a 9 mm high-pressure angioplasty balloon , 4 cm long was introduced. It was inflated across the area of the innominate subclavian junction with elimination of the waist. Completion angiogram demonstrated no residual lesion. The balloon was now withdrawn with the Glidewire into the arm lesion and this was gently inflated also using a 3 mils syringe..]. Completion angiogram demonstrated [acceptable result]. The instrumentation was now withdrawn over hand pressure for 10 minutes measurements for this case is. Dressings applied, procedure concluded. Exposure time: 2 minutes. Radiation: 609.28 mCi Contrast: 25 mils of Isovue 300, low osmolality. DICTATING PHYSICIAN: DANNIELLE DAVIS M.D. cc: DANNIELLE DAVIS M.D. ([id number]) >>
--- NOTE | 2017-07-13 12:46 | PDOC DISCHARGE SUMMARY ---
Discharge Summary (SDC) - Discharge Final Diagnosis: 1. Malfunctioning AV fistula, right brachiocephalic. 2. End-stage renal disease on hemodialysis. 3. Chronic pain syndrome. 4. Anxiety disorder. 5. Tobacco use disorder. 6. Hypertension. Date of Surgery: 07/13/17 Discharge Date: 07/13/17 Condition: Fair Treatment or Instructions: Discharge home [after recovery per ASU criteria]. Diet , [renal],as tolerated, when fully awake advance as tolerated. Activities within moderation encouraged. Follow up in my office by appointment in about [1 month]. Call for appointment. Leave wounds [covered], [keep clean and dry, until hemodialysis]. Hold of on school/work [until evaluation in office]. May shower [in 48 hrs], [try to keep operated area as dry as possible]. Referrals: SHAQ HERNDON DO [Primary Care Provider] - Discharge Diet: Other (Comments) - Renal Respiratory Treatments at Home: Deep Breathing/Coughing Discharge Activity: Activity As Tolerated Report the Following to Your Physician Immediately: Shortness of Breath, Unusual Bleeding
--- NOTE | 2017-07-13 12:49 | PDOC H&P ---
General Chief Complaint: This patient is referred for malfunctioning arteriovenous fistula. - Current Medications/Allergies Home Medications: Clonazepam [Klonopin] 0.5 mg PO TID 03/12/15 Fentanyl 50 mcg TD Q72H 03/12/15 Omeprazole 20 mg PO QHS 03/12/15 Trazodone HCl [Desyrel 50 mg Tablet] 50 mg PO QHS 10/19/15 Warfarin Sodium 5 mg PO QHS 10/19/15 Albuterol Sulfate [Proair HFA] 2 puff IH Q6HP PRN 03/17/16 Gabapentin Enacarbil [Horizant] 300 mg PO QHS 03/17/16 Tizanidine HCl 4 mg PO QHS 03/17/16 Calcium Acetate [Phoslo] 4 cap PO MEALS 03/19/16 Hydromorphone HCl [Dilaudid] 4 mg PO DAILY PRN 05/18/16 Albuterol Sulfate [Albuterol Sulfate 2.5mg/3 mL] 2.5 mg IH PRN PRN 07/13/16 Ondansetron HCl [Zofran] 4 mg PO DAILY 07/13/16 Allergies/Adverse Reactions: oxycodone HCl [From Percocet] Allergy (Severe, Verified 06/17/16 08:48) Hives acetaminophen [From Percocet] Allergy (Verified 07/13/16 11:21) adhesive Allergy (Verified 07/13/16 11:22) adhesive tape [Adhesive Tape] Allergy (Verified 06/17/16 08:48) Generalized rash oxycodone [From Percocet] Allergy (Verified 07/13/16 11:21) Past Medical History Cardiac Medical History: Reports: Congestive Heart Failure, Hypertension Denies: Coronary Artery Disease, Myocardial Infarction, Heart Murmur Pulmonary Medical History: Reports: Asthma Denies: Bronchitis, Chronic Obstructive Pulmonary Disease (COPD), Pneumonia, Respiratory Failure, Sleep Apnea, Tuberculosis Neurological Medical History: Reports: Migraine Denies: Seizures Renal/ Medical History: Reports: End Stage Renal Disease GI Medical History: Reports: Gastroesophageal Reflux Disease Musculoskeltal Medical History: Denies: Arthritis Psychiatric Medical History: Denies: Depression Hematology: Reports: Anemia Denies: Hemophilia, Sickle Cell Disease Past Surgical History Past Surgical History: Reports: Appendectomy, Section - x1, Tubal Ligation Family History Family History: Other - Multiple family members with polycystic kidney disease Parental Family History Reviewed: No Children Family History Reviewed: No Sibling(s) Family History Reviewed.: No Social History Smoking Status: Current Every Day Smoker Frequency of Alcohol Use: None Hx Recreational Drug Use: No Hx Prescription Drug Abuse: No Physical Exam Vital Signs: Temp Pulse Resp BP Pulse Ox 98.9 F 88 16 193/109 H 96 07/13/17 10:11 07/13/17 10:11 07/13/17 10:11 07/13/17 10:11 07/13/17 10:11 Intake & Output 07/12/17 07/13/17 07/14/17 06:59 06:59 06:59 Weight 116 kg 116 kg Additional comments: Constitutional: Well-developed well-nourished lady, increased body mass index. No apparent acute distress. Eyes: Mucous membranes pink and moist, pupils equal and reactive to light. Conjunctiva normal. Cornea normal. ENT: Hearing grossly normal. External pinna normal to inspection. Teeth intact. Tongue normal to inspection. Cardiac: Heart sounds 1 and 2 normal. Respiratory breath sounds are present bilaterally, normal. Normal respiratory effort. Skin: Normal to inspection. No ulcers, normal turgor. Psychiatric: Judgment, memory, insight seem normal. Mood is pleasant and appropriate. Mild chronic anxiety. Extremities: Upper extremities show normal range of movement. Pulses present noted to the radial artery on the left, difficult to feel on the right. Capillary refill normal. No cyanosis noted. No muscle wasting noted. Scar of old fistula radiocephalic noted nonfunctional. Functioning brachiocephalic fistula, very firm suggestive of cephalad stenosis. Impression/Plan Plan: In this patient with a firm fistula, suggestive of cephalad stenosis, angiogram and possible angioplasty is recommended. Intervention is a challenge for her as she needs anesthesia because of her anxiety and chronic pain syndrome. She is agreeable to proceeding with angiogram, angioplasty or other infection. She is familiar with the risks, benefits, expected outcome and alternatives and wishes to proceed.
[2017-07-13 14:33] VITALS: BP 189/104
--- NOTE | 2017-07-13 15:34 | RADIOLOGY REPORT (SQ) ---
EXAM DESCRIPTION: FISTULAGRAM W/PLASTY COMPLETED DATE/TIME: 07/13/2017 2:20 pm REASON FOR STUDY: T82.858A T82.858A STENOSIS OF OTHER VASCULAR PROSTH DEV/GRFT, INIT COMPARISON: 12/14/2016 FLUOROSCOPY TIME: 2 minutes 41 series of digital images saved to PACS. TECHNIQUE: Intra-operative images acquired during surgical procedure to evaluate progress. NUMBER OF IMAGES: 41 series of digital images LIMITATIONS: None. FINDINGS: Imaging in fluoroscopy during right/left upper extremity dialysis access evaluation and pl asty by Dr. Batista . Please refer to the operative report for further details. IMPRESSION: INTRA PROCEDURAL FLUOROSCOPY AND IMAGING ABOVE . COMMENT: Quality ID [id number]: Final reports for procedures using fluoroscopy that document radiation exp osure indices, or exposure time and number of fluorographic images (if radiation exposure indices are not available) Please consult full operative report of the attending physician for description of the procedure. TECHNICAL DOCUMENTATION: JOB ID: [id number] [employer]- All Rights Reserved
== END 2017-07-13 14:30 | disposition home or self-care (01) ==
LOC: CCL 09:18
PROVIDERS: ATTEND Surgery
PROC: 057D3DZ Dilation of Right Cephalic Vein with Intraluminal Device, Percutaneous Approach (ICD-10-PCS; principal; 2017-07-13)
DX: T82.858A Stenosis of other vascular prosthetic devices, implants and grafts, initial encounter (principal); Y83.2 Surgical operation with anastomosis, bypass or graft as the cause of abnormal reaction of the patient, or of later complication, without mention of misadventure at the time of the procedure; D63.1 Anemia in chronic kidney disease; I13.2 Hypertensive heart and chronic kidney disease with heart failure and with stage 5 chronic kidney disease, or end stage renal disease; I50.9 Heart failure, unspecified; N18.6 End stage renal disease; G89.4 Chronic pain syndrome; F41.9 Anxiety disorder, unspecified; G43.909 Migraine, unspecified, not intractable, without status migrainosus; J45.909 Unspecified asthma, uncomplicated; F17.210 Nicotine dependence, cigarettes, uncomplicated; Z99.2 Dependence on renal dialysis; Z79.899 Other long term (current) drug therapy; Z79.01 Long term (current) use of anticoagulants; Z79.51 Long term (current) use of inhaled steroids
CPT/HCPCS: 36902; C1725; C1752; C1887; C1894; Q9967; C1769; J2250; J1644 ×2; J3010; J3490; J2704; 1844

== ENCOUNTER 2017-10-25 09:39 | Day surgery (SDC) | payer MEDICARE, MEDICAID ==
[~2017-10-25 09:39] MED LIST changes: -BUPIVACAINE HCL 0.25 % INJ/PF (2.5 MG/1 ML) 30 ML VIAL ONE; +DIAZEPAM 5 MG TABLET PO PRN; -LIDOCAINE 0.5% INJ-PF (5 MG/ML) 50 ML SDV ONE
[2017-10-25 10:54] LABS: HEMATOCRIT 36.3 % (36.0-47.0); HEMOGLOBIN 12.3 g/dL (12.0-15.5); MEAN CORPUSCULAR HEMOGLOBIN 29.7 pg (27.0-33.4); MEAN CORPUSCULAR VOLUME 87 fl (80-97); PLATELET COUNT 179 10^3/uL (150-450); RED BLOOD COUNT 4.16 10^6/uL (3.72-5.28); RED CELL DISTRIBUTION WIDTH 13.7 % (11.5-14.0); WHITE BLOOD COUNT 4.8 10^3/uL (4.0-10.5)
[2017-10-25] MEDS ORDERED: MIDAZOLAM 2 MG/2 ML INJ ONE ×2 (10:55→11:09)
[2017-10-25 11:07] LABS: ANION GAP 18 (5-19); BLOOD UREA NITROGEN 33 mg/dL (7-20); CALCIUM 10.2 mg/dL (8.4-10.2); CARBON DIOXIDE 24 mmol/L (22-30); CHLORIDE 97 mmol/L (98-107); GLUCOSE 92 mg/dL (75-110); POTASSIUM 4.4 mmol/L (3.6-5.0); SODIUM 138.7 mmol/L (137-145)
[2017-10-25] MEDS ORDERED: PROPOFOL INJ 200 MG/20 ML VIAL IV ONE (11:10)
[2017-10-25] MEDS ORDERED: FENTANYL CITRATE INJ/PF 100 MCG/2 ML AMPUL ONE (11:10)
[2017-10-25] MEDS ORDERED: LIDOCAINE 0.5% INJ-PF (5 MG/ML) 50 ML SDV ONE (11:23)
[2017-10-25] MEDS ORDERED: HEPARIN SOD (PORCINE) 5,000 UNIT/ML 1 ML SYRINGE ONE (11:45)
--- NOTE | 2017-10-25 13:12 | PDOC DISCHARGE SUMMARY ---
Discharge Summary (SDC) - Discharge Final Diagnosis: #1 malfunctioning arteriovenous fistula, right brachiocephalic. 2. End-stage renal disease on hemodialysis. 3. Chronic pain syndrome. 4. Tobacco use disorder. 5. Hypertension. Date of Surgery: 10/25/17 Discharge Date: 10/25/17 Condition: Good Treatment or Instructions: Discharge home [after recovery per ASU criteria]. Diet , [renal],as tolerated, when fully awake advance as tolerated. Activities within moderation encouraged. Follow up in my office by appointment in about [1 week]. Call for appointment. Leave wounds [covered], [keep clean and dry, until hemodialysis, suture may be removed and hemodialysis. Hold of on school/work [until evaluation in office]. Meds per med rec. May shower [in 48 hrs], [try to keep operated area as dry as possible]. Referrals: SHAQ HERNDON DO [Primary Care Provider] - Discharge Diet: Other (Comments) - Renal. Respiratory Treatments at Home: Deep Breathing/Coughing Discharge Activity: Activity As Tolerated Report the Following to Your Physician Immediately: Shortness of Breath, Unusual Bleeding
[2017-10-25] MEDS ORDERED: FENTANYL CITRATE INJ/PF 100 MCG/2 ML AMPUL IV PRN ×3 (13:17)
[2017-10-25] MEDS ORDERED: PROMETHAZINE HCL INJ 25 MG/1 ML VIAL IV PRN ×2 (13:17)
[2017-10-25] MEDS ORDERED: DIPHENHYDRAMINE HCL 50 MG/ML VIAL IV PRN (13:17)
[2017-10-25] MEDS ORDERED: MEPERIDINE HCL/PF INJ 25 MG/1 ML DISP.SYRIN IV PRN (13:17)
--- NOTE | 2017-10-25 13:20 | Operative Report ---
Operative Report DATE OF SURGERY: 10/25/17 PREOPERATIVE DIAGNOSIS: Solar U Pam#1 malfunctioning arteriovenous fistula, right brachiocephalic. 2. End-stage renal disease on hemodialysis. 3. Chronic pain syndrome. 4. Tobacco use disorder. 5. Hypertension. POSTOPERATIVE DIAGNOSIS: #1 malfunctioning arteriovenous fistula, right brachiocephalic. 2. End-stage renal disease on hemodialysis. 3. Chronic pain syndrome. 4. Tobacco use disorder. 5. Hypertension. OPERATION: 1. Needle introduction in the fistula. 2. Central angioplasty. 3. Peripheral arteriovenous fistula angioplasty. 4. Drug-eluting balloon angioplasty. 5. Angiogram and interpretation. SURGEON: DANNIELLE ECHEVARRIA PROJECT ARCHIVIST: Sunita ANESTHESIA: Moderate Sedation TISSUE REMOVED OR ALTERED: Not applicable. COMPLICATIONS: None. ESTIMATED BLOOD LOSS: 5 mL. INTRAOPERATIVE FINDINGS: Although well-established right brachiocephalic fistula , somewhat firm initially. Appropriately softer after intervention. Culprit lesion chiefly at 20 cm from the anastomosis for a distance of 3 cm, about 70% of the adjacent lumen. Considerable rebound noted even after dilatation 9 mm. Finally resolved with drug-eluting balloon 10 mm. Additional stenosis noted at the cephalic subclavian junction estimated to be about 60% of the adjacent lumen with an adjacent collateral suggesting hemodynamic significance. Completely resolved within 9 mm balloon. Consideration to be given for a stent graft in the peripheral lesion should it recur within a few months. PROCEDURE: PROCEDURE: After verifying the procedure and having obtained informed consent, the patient's right arm was prepared with Chlorhexidine and draped out with sterile linen. Local anesthesia infiltrated. Percutaneous access into the fistula ,[ antegrade], obtained about [2 cm] from the arteriovenous anastomosis using a 0.035 [place] wire. o=Over this, a 7 [place] short introducer was placed, this was followed by a 8-mm ] angioplasty balloon . Angioplasty was done at the cephalic subclavian junction. Inflating using a 3 mils syringe. Completion angiogram suggested residual stenosis. The 8 mm balloon was withdrawn to the chief culprit lesion is about 20 cm. Serial angioplasty was done. Residual stenosis remained. A 9 mm angioplasty balloon was now inserted and again dilatations done particularly at the culprit lesion situated at 20 cm. It is to be noted that the central lesion was also dilated with a 9 mm balloon with good results. Completion angiogram was unsatisfactory. It was therefore decided to use a drug -eluting balloon in the hopes of obviating stent graft. A 10 mm drug-eluting balloon, 6 cm long was now placed over the culprit lesion sent to the medicine. He does inflated up to 11 manjinder and sustained for 3 minutes. Completion angiogram demonstrated [satisfactory result]. The instrumentation was now withdrawn over a short piece of catheter and a 5-0 Prolene suture. Dressings applied, procedure concluded. Exposure time:1.8 minutes. Radiation: 52.57 Cynthia logan Contrast: 50 mils of Isovue-300, low osmolality. DICTATING PHYSICIAN: DANNIELLE DAVIS M.D. cc: DANNIELLE DAVIS M.D. ([id number]) >>
--- NOTE | 2017-10-25 13:22 | PDOC H&P ---
General Chief Complaint: This patient was referred across because of a possible stenosis detected by the dialysis staff fistula. - Current Medications/Allergies Home Medications: Fentanyl 50 mcg TD Q72H 03/12/15 Omeprazole 20 mg PO QHS 03/12/15 Trazodone HCl [Desyrel 50 mg Tablet] 50 mg PO QHS 10/19/15 Warfarin Sodium 5 mg PO QHS 10/19/15 Albuterol Sulfate [Proair HFA] 2 puff IH Q6HP PRN 03/17/16 Tizanidine HCl 4 mg PO QHS 03/17/16 Calcium Acetate [Phoslo] 4 cap PO MEALS 03/19/16 Ondansetron HCl [Zofran] 4 mg PO DAILY 07/13/16 Bupropion HCl [Wellbutrin 100 mg Tablet] mg PO DAILY 10/25/17 Allergies/Adverse Reactions: oxycodone HCl [From Percocet] Allergy (Severe, Verified 06/17/16 08:48) Hives acetaminophen [From Percocet] Allergy (Verified 07/13/16 11:21) adhesive Allergy (Verified 07/13/16 11:22) adhesive tape [Adhesive Tape] Allergy (Verified 06/17/16 08:48) Generalized rash oxycodone [From Percocet] Allergy (Verified 07/13/16 11:21) Past Medical History Cardiac Medical History: Reports: Congestive Heart Failure, Hypertension Denies: Coronary Artery Disease, Myocardial Infarction, Heart Murmur Pulmonary Medical History: Reports: Asthma Denies: Bronchitis, Chronic Obstructive Pulmonary Disease (COPD), Pneumonia, Respiratory Failure, Sleep Apnea, Tuberculosis Neurological Medical History: Reports: Migraine Denies: Seizures Renal/ Medical History: Reports: End Stage Renal Disease GI Medical History: Reports: Gastroesophageal Reflux Disease Musculoskeltal Medical History: Denies: Arthritis Psychiatric Medical History: Denies: Depression Hematology: Reports: Anemia Denies: Hemophilia, Sickle Cell Disease Past Surgical History Past Surgical History: Reports: Appendectomy, Section - x1, Tubal Ligation Family History Family History: Other - Multiple family members with polycystic kidney disease Parental Family History Reviewed: No Children Family History Reviewed: No Sibling(s) Family History Reviewed.: No Social History Smoking Status: Current Some Day Smoker Frequency of Alcohol Use: None Hx Recreational Drug Use: No Hx Prescription Drug Abuse: No Physical Exam Vital Signs: Temp Pulse Resp BP Pulse Ox 98.6 F 85 16 136/103 H 97 10/25/17 10:39 10/25/17 10:39 10/25/17 10:39 10/25/17 10:39 10/25/17 10:39 Intake & Output 10/24/17 10/25/17 10/26/17 06:59 06:59 06:59 Weight 110 kg Additional comments: Constitutional: Well-developed well-nourished lady. No apparent acute distress. Eyes: Mucous membranes pink and moist, pupils equal and reactive to light. Conjunctiva normal. Cornea normal. ENT: Hearing grossly normal. External pinna normal to inspection. Teeth intact. Tongue normal to inspection. Cardiac: Heart sounds 1 and 2 normal. Respiratory breath sounds are present bilaterally, normal. Normal respiratory effort. Psychiatric: Judgment, memory, insight seem normal. Mood is pleasant and appropriate. Extremities: Upper extremities show normal range of movement. Pulses present noted to the radial arteries. Capillary refill normal. No cyanosis noted. No muscle wasting noted. A right sided brachiocephalic fistula is noted. Firm with a normal bruit. Suggestive of cephalad stenosis. . Impression/Plan Plan: Angiogram is recommended with possible need for angioplasty. The procedure, its risks, benefits, expected outcome are familiar to the patient and she wishes to proceed.
--- NOTE | 2017-10-25 14:40 | RADIOLOGY REPORT (SQ) ---
EXAM DESCRIPTION: ANGIOPLASTY BRACHIOCEPHALIC; FISTULAGRAM W/PLASTY COMPLETED DATE/TIME: 10/25/2017 2:02 pm; 10/25/2017 2:12 pm REASON FOR STUDY: T82.858A T82.858A STENOSIS OF OTHER VASCULAR PROSTH DEV/GRFT, INIT COMPARISON: None. FLUOROSCOPY TIME: 1.8 minute. 56 images saved to PACS. TECHNIQUE: Intra-operative images acquired during surgical procedure to evaluate progress. NUMBER OF IMAGES: 56 images. LIMITATIONS: None. FINDINGS: Imaging in fluoroscopy during right upper extremity dialysis access evaluation and plasty by Dr. Batista . Please refer to the operative report for further details. IMPRESSION: INTRA PROCEDURAL IMAGING ABOVE . COMMENT: Quality ID 145: Final reports for procedures using fluoroscopy that document radiation exp osure indices, or exposure time and number of fluorographic images (if radiation exposure indices are not available) Please consult full operative report of the attending physician for description of the procedure. TECHNICAL DOCUMENTATION: JOB ID: [id number] [employer]- All Rights Reserved Reading location - IP/workstation name: [email or web address]
--- NOTE | 2017-10-25 14:40 | RADIOLOGY REPORT (SQ) ---
EXAM DESCRIPTION: ANGIOPLASTY BRACHIOCEPHALIC; FISTULAGRAM W/PLASTY COMPLETED DATE/TIME: 10/25/2017 2:02 pm; 10/25/2017 2:12 pm REASON FOR STUDY: T82.858A T82.858A STENOSIS OF OTHER VASCULAR PROSTH DEV/GRFT, INIT COMPARISON: None. FLUOROSCOPY TIME: 1.8 minute. 56 images saved to PACS. TECHNIQUE: Intra-operative images acquired during surgical procedure to evaluate progress. NUMBER OF IMAGES: 56 images. LIMITATIONS: None. FINDINGS: Imaging in fluoroscopy during right upper extremity dialysis access evaluation and plasty by Dr. Batista . Please refer to the operative report for further details. IMPRESSION: INTRA PROCEDURAL IMAGING ABOVE . COMMENT: Quality ID [id number]: Final reports for procedures using fluoroscopy that document radiation exp osure indices, or exposure time and number of fluorographic images (if radiation exposure indices are not available) Please consult full operative report of the attending physician for description of the procedure. TECHNICAL DOCUMENTATION: JOB ID: [id number] [employer]- All Rights Reserved Reading location - IP/workstation name: [email or web address]
[2017-10-25 15:04] VITALS: BP 129/81
== END 2017-10-25 15:10 | disposition home or self-care (01) ==
LOC: OROUT 09:39
PROVIDERS: ATTEND Surgery
PROC: 057D3DZ Dilation of Right Cephalic Vein with Intraluminal Device, Percutaneous Approach (ICD-10-PCS; principal; 2017-10-25)
DX: T82.858A Stenosis of other vascular prosthetic devices, implants and grafts, initial encounter (principal); Y83.2 Surgical operation with anastomosis, bypass or graft as the cause of abnormal reaction of the patient, or of later complication, without mention of misadventure at the time of the procedure; I13.2 Hypertensive heart and chronic kidney disease with heart failure and with stage 5 chronic kidney disease, or end stage renal disease; I50.9 Heart failure, unspecified; N18.6 End stage renal disease; Z99.2 Dependence on renal dialysis; K21.9 Gastro-esophageal reflux disease without esophagitis; D64.9 Anemia, unspecified; Z79.899 Other long term (current) drug therapy; Z79.01 Long term (current) use of anticoagulants; Z79.51 Long term (current) use of inhaled steroids
CPT/HCPCS: 36415; 85027; 81025; 80048; 36907; 36902; J2250; J1644 ×2; J3490; J2704; 350; J3010

== ENCOUNTER 2018-08-22 06:51 | Day surgery (SDC) | payer MEDICAID, MEDICARE ==
[~2018-08-22 06:51] MED LIST changes: +DIAZEPAM 5 MG TABLET ONE; +OXYCODONE-ACETAMINOPHEN 5-325 MG TABLET ONE
[2018-08-22 07:52] LABS: ABSOLUTE BASOPHILS # (AUTO) 0.1 10^3/uL (0.0-0.2); ABSOLUTE EOSINOPHILS # (AUTO) 0.3 10^3/uL (0.0-0.6); ABSOLUTE LYMPHOCYTES (AUTO) 1.8 10^3/uL (0.5-4.7); ABSOLUTE MONOCYTES (AUTO) 0.5 10^3/uL (0.1-1.4); ABSOLUTE NEUT (AUTO) 3.5 10^3/uL (1.7-8.2); EOSINOPHILS % (AUTO) 5.1 % (0-6); HEMATOCRIT 43.8 % (36.0-47.0); HEMOGLOBIN 14.7 g/dL (12.0-15.5); MEAN CORPUSCULAR HGB CONC 33.6 g/dL (32.0-36.0); MEAN CORPUSCULAR VOLUME 92 fl (80-97); MONOCYTES % (AUTO) 8.2 % (3-13); PLATELET COUNT 222 10^3/uL (150-450); RED BLOOD COUNT 4.74 10^6/uL (3.72-5.28); RED CELL DISTRIBUTION WIDTH 14.8 % (11.5-14.0); SEGMENTED NEUTROPHILS % (AUTO) 56.7 % (42-78); TOTAL CELLS COUNTED % (AUTO) 100 %; WHITE BLOOD COUNT 6.1 10^3/uL (4.0-10.5)
[2018-08-22 07:54] LABS: INTERNATIONAL RATION (INR) 0.95; PROTHROMBIN TIME 13.1 SEC (11.4-15.4)
[2018-08-22 07:55] LABS: PARTIAL THROMBOPLASTIN TIME 31.8 SEC (23.5-35.8)
[2018-08-22 08:02] LABS: ANION GAP 17 (5-19); BLOOD UREA NITROGEN 55 mg/dL (7-20); CALCIUM 9.9 mg/dL (8.4-10.2); CARBON DIOXIDE 26 mmol/L (22-30); CHLORIDE 96 mmol/L (98-107); GLUCOSE 113 mg/dL (75-110); POTASSIUM 5.6 mmol/L (3.6-5.0); SODIUM 138.5 mmol/L (137-145)
[2018-08-22] MEDS ORDERED: MIDAZOLAM 2 MG/2 ML INJ ONE (08:28)
[2018-08-22] MEDS ORDERED: FENTANYL CITRATE INJ/PF 100 MCG/2 ML AMPUL ONE (08:28)
[2018-08-22] MEDS ORDERED: HEPARIN SOD (PORCINE) 1,000 UNIT/ML 10 ML VIAL ONE (08:28)
[2018-08-22] MEDS ORDERED: ONDANSETRON HCL INJ/PF 4 MG/2 ML SDV ONE (08:28)
[2018-08-22] MEDS ORDERED: PROPOFOL INJ 200 MG/20 ML VIAL IV ONE (08:29)
[2018-08-22] MEDS ORDERED: HEPARIN SOD (PORCINE) 5,000 UNIT/ML 1 ML SYRINGE ONE (09:21)
[2018-08-22] MEDS ORDERED: LIDOCAINE 0.5% INJ-PF (5 MG/ML) 50 ML SDV ONE (09:21)
[2018-08-22] MEDS ORDERED: KETAMINE HCL INJ 500 MG/10 ML VIAL ONE (09:59)
[2018-08-22] MEDS ORDERED: DIPHENHYDRAMINE HCL 50 MG/ML VIAL IV PRN (11:05)
[2018-08-22] MEDS ORDERED: MEPERIDINE HCL/PF INJ 25 MG/1 ML DISP.SYRIN IV PRN (11:05)
[2018-08-22] MEDS ORDERED: FENTANYL CITRATE INJ/PF 100 MCG/2 ML AMPUL IV PRN ×3 (11:05)
[2018-08-22] MEDS ORDERED: MORPHINE SULFATE 10 MG/ML INJ IV PRN (11:05)
[2018-08-22] MEDS ORDERED: PROMETHAZINE HCL INJ 25 MG/1 ML VIAL IV PRN ×2 (11:05)
[2018-08-22] MEDS ORDERED: DIPHENHYDRAMINE HCL 50 MG/ML VIAL ONE (11:14)
--- NOTE | 2018-08-22 11:39 | Discharge Summary ---
Discharge Summary (SDC) - Discharge Final Diagnosis: #1 AV fistula malfunction, right brachiobasilic. 2. End-stage renal disease on hemodialysis. 3. Hypertension. Date of Surgery: 08/22/18 Discharge Date: 08/22/18 Condition: Fair Forms: ASU Anesthesia D/C Instruction, Discharge POC-Surgical Service Treatment or Instructions: Discharge home [after recovery per ASU criteria]. Diet , [renal],as tolerated, when fully awake advance as tolerated. Activities within moderation encouraged. Follow up in my office by appointment in about [1 month. Call for appointment. Leave wounds [covered], [keep clean and dry, until hemodialysis]. Hold of on school/work [until evaluation in office]. Meds per med rec. May shower [in 48 hrs], [try to keep operated area as dry as possible]. Referrals: DANNIELLE DAVIS MD [ACTIVE STAFF] - 08/31/18 1:45 pm Discharge Diet: Other (Comments) - Renal. Respiratory Treatments at Home: Deep Breathing/Coughing Discharge Activity: Activity As Tolerated Report the Following to Your Physician Immediately: Shortness of Breath, Unusual Bleeding
--- NOTE | 2018-08-22 11:43 | Operative Report ---
Operative Report DATE OF SURGERY: 08/22/18 PREOPERATIVE DIAGNOSIS: #1 AV fistula malfunction, right brachiobasilic. 2. E nd-stage renal disease on hemodialysis. 3. Hypertension POSTOPERATIVE DIAGNOSIS: #1 AV fistula malfunction, right brachiobasilic. 2. End-stage renal disease on hemodialysis. 3. Hypertension OPERATION: 1. Needle access into the fistula, right brachiocephalic. 2. Angioplasty and fistula. 3. Drug-eluting balloon angioplasty. 4. Angiogram and interpretation. SURGEON: DANNIELLE ECHEVARRIA NURSE RECRUITER: None. ANESTHESIA: Moderate Sedation TISSUE REMOVED OR ALTERED: Not applicable. COMPLICATIONS: None. ESTIMATED BLOOD LOSS: 5 mL. PROCEDURE: PROCEDURE: After verifying the procedure and having obtained informed consent, the patient's right arm was prepared with Chlorhexidine and draped out with sterile linen. Local anesthesia infiltrated. Percutaneous access into the fistula ,[ antegrade], obtained about [2 cm] from the arteriovenous anastomosis using a micro puncture needle followed by micro puncture wire and then a micro puncture catheter. A 0.035 [place] wire was inserted, and over this, a 7 [place]ian short introducer was placed, this was followed by a [7-mm] angioplasty balloon . Angiogram demonstrated the aforementioned findings. Angioplasty was elected. Angioplasty was Done using a 7 mm angioplasty balloon and 3 mils syringe for up to 3 minutes at a time.]. Based on the results a 9 mm 4 mm long high-pressure angioplasty balloon was now used to the dilator and the affected segment. Based on the recurrence of this lesion after about 7 months and the critical need for this access it was decided to use a drug-eluting balloon. A 10 mm drug-eluting balloon was now inserted and positioned over the area of the affected area and inflated up to 11 manjinder for 4 minutes. Completion angiogram demonstrated [satisfactory result]. The instrumentation was now withdrawn over hand pressure for 10 minutes . Dressings applied, procedure concluded. Exposure time: 0.7 minutes. Radiation: 12.27 mGy. Contrast: 25 mils of Isovue-300, low osmolality. DICTATING PHYSICIAN: DANNIELLE DAVIS M.D. cc: DANNIELLE DAVIS M.D. ([id number]) >>
--- NOTE | 2018-08-22 12:31 | RADIOLOGY REPORT (SQ) ---
EXAM DESCRIPTION: FISTULAGRAM W/PLASTY COMPLETED DATE/TIME: 08/22/2018 11:48 am REASON FOR STUDY: T82.858A T82.858A STENOSIS OF OTHER VASCULAR PROSTH DEV/GRFT, INIT N18.6 END STA GE RENAL DISEASE Z79.01 CUSTODIAL (CURRENT) USE OF ANTICOAGULANTS COMPARISON: None. FLUOROSCOPY TIME: 0.7 minutes. 24 images saved to PACS. TECHNIQUE: Intra-operative images acquired during surgical procedure to evaluate progress. NUMBER OF IMAGES: 24 images. LIMITATIONS: None. FINDINGS: Imaging in fluoroscopy during right upper extremity dialysis access evaluation and plasty by Dr. Batista . Please refer to the operative report for further details. IMPRESSION: INTRA PROCEDURAL IMAGING ABOVE . COMMENT: Quality ID [id number]: Final reports for procedures using fluoroscopy that document radiation exp osure indices, or exposure time and number of fluorographic images (if radiation exposure indices are not available) Please consult full operative report of the attending physician for description of the procedure. TECHNICAL DOCUMENTATION: JOB ID: [id number] [employer] All Rights Reserved Reading location - IP/workstation name: [email or web address]
[2018-08-22 12:34] VITALS: BP 106/72
== END 2018-08-22 12:30 | disposition home or self-care (01) ==
LOC: CCL 06:51
PROVIDERS: ATTEND Surgery
DX: T82.858A Stenosis of other vascular prosthetic devices, implants and grafts, initial encounter (principal); Y83.2 Surgical operation with anastomosis, bypass or graft as the cause of abnormal reaction of the patient, or of later complication, without mention of misadventure at the time of the procedure; I12.0 Hypertensive chronic kidney disease with stage 5 chronic kidney disease or end stage renal disease; N18.6 End stage renal disease; Z99.2 Dependence on renal dialysis; Q61.3 Polycystic kidney, unspecified; K86.1 Other chronic pancreatitis; F41.9 Anxiety disorder, unspecified; G89.4 Chronic pain syndrome; F17.210 Nicotine dependence, cigarettes, uncomplicated; J45.909 Unspecified asthma, uncomplicated; F32.9 Major depressive disorder, single episode, unspecified; G43.909 Migraine, unspecified, not intractable, without status migrainosus; G47.33 Obstructive sleep apnea (adult) (pediatric); E66.9 Obesity, unspecified; M19.90 Unspecified osteoarthritis, unspecified site; Z79.51 Long term (current) use of inhaled steroids; Z86.711 Personal history of pulmonary embolism; Z79.01 Long term (current) use of anticoagulants; Z79.899 Other long term (current) drug therapy; Z88.5 Allergy status to narcotic agent; Z01.818 Encounter for other preprocedural examination; Z68.35 Body mass index [BMI] 35.0-35.9, adult
CPT/HCPCS: 36415; 84703; 85025; 85610; 85730; 80048; 36902; C2623; C1752; C1725; C1894; C1769; J2250; A9270; J1200; J3010; J1644 ×2; J3490 ×2; J2405; J2704; 1844